=== PATIENT | male | born 1935 | race Caucasian/White ===

== ENCOUNTER 2017-09-29 07:39 | Day surgery (SDC) | payer OTHER, SELFPAY ==
[2017-09-29] MEDS: PROPARACAINE 0.5% OPHTH SOL 2 DROPS EYE-OP (07:55)
[2017-09-29] MEDS: CATARACT EYE COMPOUND (10 DROPS/SYRINGE) 3 DROPS EYE-OP (08:00)
[2017-09-29 08:02] VITALS: BP 153/82; PULSE 60; RESP 16; TEMP 36.1; O2SAT 100; BMI 24.3
--- NOTE | 2017-09-29 08:45 | P.OP_ITS ---
Operative Date/Time/Diagnoses Pre-op diagnosis: Cataract Left eye Post-op diagnosis: same Procedure & Clinicians Surgeon: Sanchez Fry Anesthesia Type: MAC +/- and Sedation Operative Notes Procedure in detail: Patient brought to the operating suite. Tetracaine drops placed in the left eye. Patient was prepped and draped in sterile manner. Wire lid speculum was placed in the eye. Betadine drops were placed on the eye. This was irrigated. Lidocaine jelly was placed on the eye. A paracentesis port was created with a side-port blade. 0.1 mL 1% preservative free lidocaine was injected into the anterior chamber. The anterior chamber was deepened with viscoelastic. 2.6 mm keratome was used to create a temporal clear corneal incision. Cystotome and Utrata forceps were used to create continuous tear capsulorrhexis. Balanced salt solution was used to hydro dissect the nucleus. The phacoemulsification handpiece was inserted and the nucleus was removed using the stop and chop technique. The irrigation aspiration handpiece was inserted and the remaining cortex was removed. Anterior chamber was deepened with viscoelastic. An Ramos ZCB00 intraocular lens with a power of 21.0 was injected into the capsular bag. Irrigation aspiration handpiece was inserted and the remaining viscoelastic was removed. Incision was hydrated with balanced salt solution and found to be leak free with pressure with Weck- Kelley sponges. 0.1 mL Vigamox injected anterior chamber. 0.3 mL Kenalog 10 mg was injected subconjunctivally. Lid speculum was removed. The patient left the operating room in excellent condition. Complications: none Condition: stable Disposition: same day surgery
--- NOTE | 2017-09-29 08:45 | P.OP.PRE_ITS ---
Pre-operative Note Interval Note Changes: No
--- NOTE | 2017-09-29 08:45 | PM.PREOP ---
Pre-operative Note Interval Note Changes: No
[2017-09-29] MEDS: LIDOCAINE JELLY 2% 5 ML 1 APPLIC TOP (08:57)
[2017-09-29] MEDS: MOXIFLOXACIN OPHTH DROPS 3 ML BOTTLE 2 DROPS INJ (08:57)
[2017-09-29] MEDS: CHONDROIDTIN/SOD HYALURONATE 1.05 ML SYRINGE INTRAOCULA (08:57)
[2017-09-29] MEDS: TRIAMCINOLONE 50 MG/5 ML VIAL INJ (08:58)
[2017-09-29] MEDS: PHENYLEPHRINE/LIDOCAINE 3ML VIAL (OR) EYE-OP (08:58)
[2017-09-29] MEDS: TETRACAINE 0.5% OPHTH DROPS 15 ML 2 DROPS EYE-LEFT (08:58)
[2017-09-29] MEDS: BALANCED SALT IRRIG SOLN NO.2 500 ML, EPINEPHrine 1 MG IRR (08:58)
[2017-09-29 09:10] VITALS: BP 132/77; PULSE 53; RESP 16; TEMP 36.7; O2SAT 98
== END 2017-09-29 09:15 | disposition home or self-care (01) ==
LOC: OR 07:40
PROVIDERS: Family Provider Internal Medicine; PCP Internal Medicine; Visit Provider Ophthalmology
DX: H25.12 Age-related nuclear cataract, left eye (principal); I10 Essential (primary) hypertension
CPT/HCPCS: J0171; J2250; J3010; J3301

== ENCOUNTER 2017-10-13 06:45 | Day surgery (SDC) | payer OTHER, SELFPAY ==
[2017-10-13] MEDS: PROPARACAINE 0.5% OPHTH SOL 2 DROPS EYE-OP (07:20)
[2017-10-13] MEDS: CATARACT EYE COMPOUND (10 DROPS/SYRINGE) 3 DROPS EYE-OP (07:20)
[2017-10-13 07:27] VITALS: BMI 24.3
[2017-10-13 07:46] VITALS: BP 147/77; PULSE 53; RESP 15; TEMP 36.4
--- NOTE | 2017-10-13 08:43 | P.OP.PRE_ITS ---
Pre-operative Note Interval Note Changes: No
--- NOTE | 2017-10-13 08:43 | P.OP_ITS ---
Operative Date/Time/Diagnoses Pre-op diagnosis: Cataract Right eye Post-op diagnosis: same Procedure & Clinicians Procedure: Cataract Surgery Same procedure as scheduled: Yes Surgeon: Sanchez Fry Anesthesia Type: MAC +/- and Sedation Operative Notes Procedure in detail: Patient brought to the operating suite. Tetracaine drops placed in the right eye. Patient was prepped and draped in sterile manner. Wire lid speculum was placed in the eye. Betadine drops were placed on the eye. This was irrigated. Lidocaine jelly was placed on the eye. A paracentesis port was created with a side-port blade. 0.1 mL 1% preservative free lidocaine was injected into the anterior chamber. The anterior chamber was deepened with viscoelastic. 2.6 mm keratome was used to create a temporal clear corneal incision. Cystotome and Utrata forceps were used to create continuous tear capsulorrhexis. Balanced salt solution was used to hydro dissect the nucleus. The phacoemulsification handpiece was inserted and the nucleus was removed using the stop and chop technique. The irrigation aspiration handpiece was inserted and the remaining cortex was removed. Anterior chamber was deepened with viscoelastic. An Ramos ZCB00 intraocular lens with a power of 21.0 was injected into the capsular bag. Irrigation aspiration handpiece was inserted and the remaining viscoelastic was removed. Incision was hydrated with balanced salt solution and found to be leak free with pressure with Weck- Kelley sponges. 0.1 mL Vigamox injected anterior chamber. 0.3 mL Kenalog 10 mg was injected subconjunctivally. Lid speculum was removed. The patient left the operating room in excellent condition. Complications: none Condition: stable Disposition: same day surgery
--- NOTE | 2017-10-13 08:43 | PM.PREOP ---
Pre-operative Note Interval Note Changes: No
[2017-10-13] MEDS: CHONDROIDTIN/SOD HYALURONATE 1.05 ML SYRINGE INTRAOCULA (08:53)
[2017-10-13] MEDS: LIDOCAINE JELLY 2% 5 ML 1 APPLIC TOP (08:53)
[2017-10-13] MEDS: TRIAMCINOLONE 50 MG/5 ML VIAL INJ (08:54)
[2017-10-13] MEDS: BALANCED SALT IRRIG SOLN NO.2 500 ML, EPINEPHrine 1 MG IRR (08:54)
[2017-10-13] MEDS: PHENYLEPHRINE/LIDOCAINE 3ML VIAL (OR) EYE-OP (08:54)
[2017-10-13] MEDS: MOXIFLOXACIN OPHTH DROPS 3 ML BOTTLE 2 DROPS INJ (08:54)
[2017-10-13] MEDS: TETRACAINE 0.5% OPHTH DROPS 15 ML 2 DROPS EYE-RIGHT (08:54)
[2017-10-13 09:17] VITALS: BP 121/68; PULSE 53; RESP 10; TEMP 36.6
== END 2017-10-13 09:25 | disposition home or self-care (01) ==
PROVIDERS: Family Provider Internal Medicine; PCP Internal Medicine; Visit Provider Ophthalmology
DX: H25.11 Age-related nuclear cataract, right eye (principal); I10 Essential (primary) hypertension
CPT/HCPCS: J0171; J2250; J3010; J3301

== ENCOUNTER → 2017-12-30 12:32 | Outpatient (CLI) | payer OTHER, SELFPAY ==
[2017-12-30 13:31] LABS: Alanine Aminotransferase 35 IU/L (21-72); Albumin 4.6 g/dL (3.5-5.0); Albumin Globulin Ratio 1.3 (1.0-2.8); Alkaline Phosphatase 75 U/L (38-126); Aspartate Aminotransferase 38 IU/L (17-59); BUN Creatinine Ratio 24.5 (6-22); Bilirubin Total 0.5 mg/dL (0.2-1.3); Blood Urea Nitrogen 27 mg/dL (9-20); Calcium 9.4 mg/dL (8.4-10.2); Carbon Dioxide 31 mmol/L (22-32); Chloride 93 mmol/L (98-107); Estimated Glomerular Filt Rate > 60.0 mL/min (>60); Globulin 3.5 g/dL (1.7-4.1); Glucose 92 mg/dL (80-110); HEMOLYSIS < 15 (0-50); Potassium 4.5 mmol/L (3.4-5.1); Sodium 137 mmol/L (137-145); Total Protein 8.1 g/dL (6.3-8.2)
== END ==
PROVIDERS: PCP Internal Medicine; Visit Provider Internal Medicine
DX: I10 Essential (primary) hypertension (principal)
CPT/HCPCS: 36415; 80053

== ENCOUNTER 2018-06-01 08:16 | Day surgery (SDC) | payer OTHER, SELFPAY ==
[2018-06-01] MEDS: SODIUM CHLORIDE 0.9% 1,000 ML 200 ML IV (09:03)
[2018-06-01 09:14] VITALS: BP 134/83; PULSE 63; RESP 15; TEMP 36.4; O2SAT 98; BMI 24.6
--- NOTE | 2018-06-01 10:13 | P.HP_ITS ---
History of Present Illness Date Patient Seen: 06/01/18 Time Patient Seen: 10:00 Chief complaint: Colonoscopy Narrative: Patient is a and here for screening colonoscopy. Last exam was 5 years ago. He had a polyp removed at that time. 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 Mother No problems noted. Sister No problems noted. Social History household members: spouse Smoking Status: Never smoker Family & Social History Family History Child Age: 48 Diabetes mellitus Father No problems noted. Mother No problems noted. Sister No problems noted. Social History: household members spouse Tobacco & Substance use: Smoking Status Never smoker Meds Home Medications Medication Instructions Recorded Confirmed Type CA PANTOTHENATE/FOLIC ACID/VIT 1 tab PO Q DAY #0 11/08/10 06/01/18 History (MULTIVITAMIN) ascorbic acid (vitamin C) 500 mg PO QDAY #0 11/17/11 06/01/18 History chlorthalidone 100 mg PO QDAY 09/29/17 06/01/18 History tamsulosin 0.4 mg capsule 0.4 mg PO DAILY #90 cap 01/26/18 06/01/18 Rx losartan 100 mg tablet 100 mg PO Q DAY #90 tab 05/24/18 06/01/18 Rx fluticasone propionate 2 spray INTRANASAL HS PRN 06/01/18 06/01/18 History multivitamin 1 tab PO DAILY 06/01/18 06/01/18 History sildenafil [Viagra] 0 mg PO QDAYP PRN 06/01/18 06/01/18 History Allergies Allergy/AdvReac Type Severity Reaction Status Date / Time erythromycin base Allergy Severe sob Verified 06/01/18 09:06 [ERYTHROMYCIN BASE] hydrochlorothiazide Allergy Mild RASH Verified 06/01/18 09:06 [HYDROCHLOROTHIAZIDE] lisinopril [LISINOPRIL] Allergy Mild RASH Verified 06/01/18 09:06 Penicillins [PENICILLINS] Allergy Mild DIARRHEA Verified 06/01/18 09:06 Review of Systems Review of Systems All systems reviewed & are unremarkable except as noted in HPI and below Exam Vital Signs (past 8 hours): - 06/01/18 09:14 Temperature 97.6 F Pulse Rate 63 Respiratory Rate 15 Blood Pressure 134/83 Pulse Oximetry 98 Oxygen Delivery Method Room Air Narrative Exam Narrative: Co Operative no apparent distress. Thin. Lungs are clear to auscultation. Heart regular rate and rhythm without murmur gallop. Abdomen is scaphoid soft nontender without mass. Assessment & Plan Assessment & Plan narrative: Here for screening colonoscopy. I have discussed the procedure and the rationale with the patient including risks of bleeding, perforation which would necessitate a major operation, failure to find remove a ll lesions and the potential to tattoo. They appeared to understand and wished to proceed.
--- NOTE | 2018-06-01 10:14 | PM.PREOP ---
Pre-operative Note Interval Note History & Physical reviewed/Exam performed by Physician: Yes Changes to H&P: No ASA Class (for procedural sedation): II
[2018-06-01] MEDS: fentaNYL 250 MCG/5 ML INJ IV (10:24)
[2018-06-01] MEDS: MIDAZOLAM 5 MG/5 ML VIAL IV (10:25)
--- NOTE | 2018-06-01 10:44 | P.OP.ENDO_ITS ---
Operative Date/Time/Diagnoses Date of procedure: 06/01/18 Time of procedure: 10:40 Post-op diagnosis: same (Sigmoid diverticulosis. Lesion of the anus that will require biopsy in the office) Procedure & Clinicians Study performed: Colonoscopy Same procedure as scheduled: Yes Indications: History of polyps. Screening exam. Surgeon: Jonnathan Massey Procedure Notes SCOAP/Timeout: Performed Procedure in detail: The patient was placed in the left lateral decubitus position and underwent IV sedation directed by the surgeon consisting of fentanyl and Versed. Digital exam was remarkable for a hard firm area. 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 The scope was inserted and advanced through the rectum into the sigmoid, descending, transverse, and ascending colon. The patient was noted to have some diverticulosis in the sigmoid colon.. The cecum was reached identified by the ileocecal valve and the appendiceal opening. The scope was gradually brought out. No Polyps were found. The scope ultimately was retroflexed in the rectum. The appearance was normal internally.. The scope was removed and the patient tolerated the procedure well. prep was very good. Scope withdrawal time: 10 minutes Sedation minutes: 23 Findings: diverticulosis (Sigmoid) and other findings (Hardened area of the anus.) Specimen(s): none sent Complications: none Recommendations: Colonscopy in 5 years (If in good health.) and Other recomme ndation (Anoscopy be to biopsy an anal lesion under local anesthetic. To be done in the office) Plan for aftercare: Follow-up in the office for an anoscopy and biopsy Follow up: weeks (2-4) Disposition: PACU
[2018-06-01 10:45] VITALS: BP 107/66; PULSE 58; RESP 20; TEMP 37; O2SAT 100
--- NOTE | 2018-06-01 10:54 | SUR.PHASEII ---
Sitting up, talking with family, drinking juice. Denies pain, nausea, light-headedness.
== END 2018-06-01 11:11 | disposition home or self-care (01) ==
PROVIDERS: PCP Internal Medicine; Visit Provider Specialist
PROC: 0DJD8ZZ Inspection of Lower Intestinal Tract, Via Natural or Artificial Opening Endoscopic (ICD-10-PCS; CPT 45378; principal; 2018-06-01 09:45)
DX: Z86.010 Personal history of colon polyps (principal); I10 Essential (primary) hypertension; K57.30 Diverticulosis of large intestine without perforation or abscess without bleeding; K62.89 Other specified diseases of anus and rectum
CPT/HCPCS: G0105; 99152; J2250; J3010

== ENCOUNTER → 2018-07-06 15:49 | Outpatient (CLI) | payer OTHER, SELFPAY ==
--- NOTE | 2018-07-06 15:50 | DI.US.S_ITS ---
PROCEDURE: US PERIPH VENOUS LOW EXTREM LT INDICATIONS: LEFT LEG REDNESS, POSSIBLE DEEP VEIN THROMBOSIS TECHNIQUE: Real-time imaging, as well as color and pulse Doppler interrogation, were performed of the lower extremity deep veins from the inguinal ligament to the popliteal fossa. COMPARISON: None. FINDINGS: The common femoral, femoral and popliteal veins are normally compressible, and free of intraluminal thrombus. Color and pulse Doppler demonstrate normal phasic intraluminal flow. There is normal augmentation response to distal compression maneuver. Multiple lymph nodes are visualized within the left inguinal region which have a normal fatty hilum. IMPRESSION: No deep vein thrombosis of the left lower extremity. Dictated by: Leanne Hi M.D. on 07/06/2018 at 17:04 Approved by: Leanne Hi M.D. on 07/06/2018 at 17:05
== END ==
PROVIDERS: PCP Internal Medicine; Visit Provider Hospitalist
DX: I82.409 Acute embolism and thrombosis of unspecified deep veins of unspecified lower extremity (principal)
CPT/HCPCS: 93971

== ENCOUNTER → 2018-08-10 12:24 | Outpatient (CLI) | payer OTHER, SELFPAY ==
[2018-08-14 17:55] LABS: Almond Allergy Class 0; Almond Allergy IgE < 0.10 kU/L (< 0.10); Cashew nut Allergy Class 0; Cashew nut Allergy IgE < 0.10 kU/L (< 0.10); Codfish Allergy Class 0; Codfish Allergy IgE < 0.10 kU/L (< 0.10); Cow Milk Allergy Class 0; Cow Milk Allergy IgE < 0.10 kU/L (< 0.10); Egg Whites IgE < 0.10 kU/L (< 0.10); Hazelnut Allergy Class 0; Hazelnut Allergy IgE < 0.10 kU/L (< 0.10); Peanut Allergy Class 0; Peanut Allergy IgE < 0.10 kU/L (< 0.10); Salmon Allergy Class 0; Salmon Allergy IgE < 0.10 kU/L (< 0.10); Scallop Allergy Class 0; Scallop Allergy IgE < 0.10 kU/L (< 0.10); Sesame seed Allergy Class 0; Sesame seed Allergy IgE < 0.10 kU/L (< 0.10); Shrimp Allergy Class 0; Shrimp Allergy IgE < 0.10 kU/L (< 0.10); Soybean Allergy Class 0; Soybean Allergy IgE < 0.10 kU/L (< 0.10); Tuna Allergy Class 0; Tuna Allergy IgE < 0.10 kU/L (< 0.10); Walnut Allergy Class 0; Walnut Allery IgE < 0.10 kU/L (< 0.10); Wheat Allergy Class 0; Wheat Allergy IgE < 0.10 kU/L (< 0.10)
== END ==
PROVIDERS: PCP Internal Medicine; Visit Provider Physician Assistant
DX: L30.9 Dermatitis, unspecified (principal)
CPT/HCPCS: 36415; 82785; 86003

== ENCOUNTER → 2019-07-11 11:04 | Outpatient (CLI) | payer OTHER, SELFPAY ==
[2019-07-13 04:31] LABS: COVID19 Sendout Not Detected (Not Detected)
== END ==
PROVIDERS: PCP Internal Medicine; Visit Provider Registered Nurse
DX: R06.02 Shortness of breath (principal)
CPT/HCPCS: 87635

== ENCOUNTER → 2019-07-29 09:08 | Outpatient (CLI) | payer OTHER, SELFPAY ==
[2019-07-29 10:13] LABS: Add Manual Diff / Slide Review NO; Basophils Absolute Auto 0 /uL (0-100); Basophils Percent Auto 0.3 % (0-2); Eosinophils Absolute Auto 300 /uL (0-450); Eosinophils Percent Auto 6.7 % (2-4); Hematocrit 41.4 % (41-53); Hemoglobin 13.9 g/dL (13.5-17.5); Lymphocytes Absolute Auto 1700 /uL (1100-4500); Lymphocytes Percent Auto 34.4 % (25-40); Mean Corpuscular HGB Conc 33.7 % (30-36); Mean Corpuscular Hemoglobin 29.3 PG (26-34); Mean Corpuscular Volume 87.1 fL (80-100); Monocytes Absolute Auto 600 /uL (0-900); Monocytes Percent Auto 12.7 % (3-14); Neutrophils Absolute Auto 2300 /uL (1500-7000); Neutrophils Percent Auto 45.9 % (50-75); Platelet Count 150 X10^3/uL (150-400); Red Blood Cell Count 4.75 X10^6/uL (4.5-5.9); Red Cell Distribution Width 14.8 % (11.6-14.8)
[2019-07-29 10:50] LABS: Erythrocyte Sedimentation Rate 7 MM/HR (0-15)
[2019-07-29 11:06] LABS: Alanine Aminotransferase 23 IU/L (<50); Albumin 4.1 g/dL (3.5-5.0); Alkaline Phosphatase 89 U/L (38-126); Aspartate Aminotransferase 34 IU/L (17-59); BUN Creatinine Ratio 22.4 (6-22); Bilirubin Total 0.9 mg/dL (0.2-1.3); Blood Urea Nitrogen 24 mg/dL (9-20); Calcium 9.4 mg/dL (8.4-10.2); Carbon Dioxide 27 mmol/L (22-32); Chloride 103 mmol/L (98-107); Estimated Glomerular Filt Rate > 60.0 mL/min (>60); Globulin 4.2 g/dL (1.7-4.1); Glucose 91 mg/dL (80-110); HEMOLYSIS < 15 (0-50); Potassium 4.4 mmol/L (3.4-5.1); Sodium 138 mmol/L (137-145); Total Protein 8.3 g/dL (6.3-8.2)
[2019-07-29 11:08] LABS: C-Reactive Protein Quant < 0.5 mg/dL (<1.0)
[2019-07-29 11:28] LABS: TSH w/ Reflex to FT4 3.93 uIU/mL (0.47-4.68)
== END ==
PROVIDERS: PCP Internal Medicine; Referring Provider Internal Medicine; Visit Provider Internal Medicine
DX: I10 Essential (primary) hypertension (principal); R06.02 Shortness of breath; R50.9 Fever, unspecified; R53.83 Other fatigue
CPT/HCPCS: 36415; 80053; 84443; 85025; 85651; 86140

== ENCOUNTER → 2020-05-01 11:12 | Outpatient (CLI) | payer OTHER, SELFPAY ==
[2020-05-01 12:58] LABS: Add Manual Diff / Slide Review NO; Basophils Absolute Auto 100 /uL (0-100); Basophils Percent Auto 0.9 % (0-2); Eosinophils Absolute Auto 300 /uL (0-450); Eosinophils Percent Auto 4.4 % (2-4); Hematocrit 46.8 % (41-53); Hemoglobin 15.6 g/dL (13.5-17.5); Lymphocytes Absolute Auto 1800 /uL (1100-4500); Lymphocytes Percent Auto 23.5 % (25-40); Mean Corpuscular HGB Conc 33.4 % (30-36); Mean Corpuscular Hemoglobin 29.9 PG (26-34); Mean Corpuscular Volume 89.6 fL (80-100); Monocytes Absolute Auto 500 /uL (0-900); Monocytes Percent Auto 7.2 % (3-14); Neutrophils Absolute Auto 4800 /uL (1500-7000); Platelet Count 141 X10^3/uL (150-400); Red Blood Cell Count 5.22 X10^6/uL (4.5-5.9); Red Cell Distribution Width 14.1 % (11.6-14.8); White Blood Cell Count 7.6 X10^3/uL (4.5-11.0)
[2020-05-01 13:14] LABS: Alanine Aminotransferase 21 IU/L (<50); Albumin 4.5 g/dL (3.5-5.0); Albumin Globulin Ratio 1.1 (1.0-2.8); Alkaline Phosphatase 91 U/L (38-126); Aspartate Aminotransferase 33 IU/L (17-59); BUN Creatinine Ratio 21.9 (6-22); Bilirubin Total 0.6 mg/dL (0.2-1.3); Blood Urea Nitrogen 21 mg/dL (9-20); Calcium 9.4 mg/dL (8.4-10.2); Carbon Dioxide 26 mmol/L (22-32); Chloride 100 mmol/L (98-107); Estimated Glomerular Filt Rate > 60.0 mL/min (>60); Globulin 4.2 g/dL (1.7-4.1); Glucose 95 mg/dL (80-110); HEMOLYSIS < 15 (0-50); Potassium 4.3 mmol/L (3.4-5.1); Sodium 134 mmol/L (137-145); Total Protein 8.7 g/dL (6.3-8.2)
== END ==
PROVIDERS: PCP Internal Medicine; Referring Provider Internal Medicine; Visit Provider Internal Medicine
DX: I10 Essential (primary) hypertension (principal)
CPT/HCPCS: 36415; 80053; 84443; 85025

== ENCOUNTER → 2020-05-10 09:28 | Outpatient (CLI) | payer OTHER, SELFPAY ==
--- NOTE | 2020-06-09 11:11 | PM.CARDMON.1 ---
[employer] Report Referral & Results Date Patient Seen: 05/10/20 Requesting provider: Anthony Aranda Indication: Dizziness Duration of monitoring (days): 14 Diary information: There were 5 patient triggered events and 4 patient diary entries These patient events were associated with (within 45 seconds) sinus rhythm and PACs Data: Minimum heart rate identified was 39 beats per minute at 06:27 on 05/15/2020 Maximum sinus heart rate was 125 beats per minute at 09:39 on 05/21/2020 Maximum overall heart rate was 203 beats per minute at 10:15 on 05/21/2020 during a 4 beat run of SVT Less than 1% of identified beats were ventricular or supraventricular ectopic in origin, which would classify them as rare. There 191 runs of SVT the fastest being the 4 beat run as above the longest lasting 18.6 seconds at a rate of 125 beats per minute Impression: Probably normal 14 day quality assurance monitor final showing rare PACs PVCs and rare, brief runs of SVT
== END ==
PROVIDERS: PCP Internal Medicine; Referring Provider Internal Medicine; Visit Provider Internal Medicine
DX: R42 Dizziness and giddiness (principal); I49.9 Cardiac arrhythmia, unspecified
CPT/HCPCS: 93246; 93248

== ENCOUNTER → 2020-07-04 11:19 | Outpatient (CLI) | payer OTHER, SELFPAY ==
[2020-07-04 12:36] LABS: COVID19 -Nasal RAPID Negative (Negative)
== END ==
PROVIDERS: PCP Internal Medicine; Visit Provider Student in an Organized Health Care Education/Training Program
DX: Z01.812 Encounter for preprocedural laboratory examination (principal); Z20.822 Contact with and (suspected) exposure to COVID-19
CPT/HCPCS: 87635

== ENCOUNTER → 2020-07-05 13:08 | Outpatient (CLI) | payer OTHER, SELFPAY ==
--- NOTE | 2020-07-05 14:29 | PM.TREADMILL ---
Cardiac Stress Test Report Referral & Results Date Patient Seen: 07/05/20 Requesting provider: Anthony Aranda Indication: Dizziness, arrhythmia Rest ECG: Unremarkable Procedure Note: Today following both written and verbal informed consent, the patient was exercised according to a standard Alvin protocol. The patient exercised for a total of 5 minutes 33 seconds achieving a maximum heart rate of 138. Patient's maximum systolic blood pressure was 220. This was an estimated 7.0 MET's. Patient did become quite dyspneic with this activity which was ultimately what caused him to stop. This seemed out of proportion to his level of exertion by far. No ST-T segment changes. Normal heart rate and blood pressure response although slightly hypertensive at his peak blood pressure Occasional PAC and PVC including runs of supraventricular bigeminy in recovery Function aerobic impairment rates about 0 on the active scale, difficult to be sure given he is well above the usual age threshold Impression: Normal treadmill, no evidence of ischemia, no significant dysrhythmias noted. Noted dyspnea as above Please note: Actual ECG tracings can be found in the PACS system.
== END ==
PROVIDERS: PCP Internal Medicine; Referring Provider Internal Medicine; Visit Provider Internal Medicine
DX: I49.9 Cardiac arrhythmia, unspecified (principal); R42 Dizziness and giddiness
CPT/HCPCS: 93016; 93017; 93018

== ENCOUNTER → 2020-07-19 11:09 | Outpatient (CLI) | payer OTHER, SELFPAY ==
[2020-07-19 12:13] LABS: COVID19 -Nasal RAPID Negative (Negative)
== END ==
PROVIDERS: PCP Internal Medicine; Referring Provider Internal Medicine; Visit Provider Internal Medicine
DX: Z20.822 Contact with and (suspected) exposure to COVID-19 (principal)
CPT/HCPCS: 87635; C9803

== ENCOUNTER → 2020-07-19 11:10 | Outpatient (CLI) | payer OTHER, SELFPAY ==
--- NOTE | 2020-07-25 11:07 | PM.PFT.1 ---
Pulmonary Function Test Referral & Results Date Patient Seen: 07/19/20 Requesting provider: Anthony Aranda Indication: Shortness of breath Results: The spirometry demonstrates an FVC of 3.83 L which is 103% of predicted. The FEV1 was measured at 2.81 L which is 109% of predicted. The FEV1/FVC ratio was 74 which is 103% of predicted. Following the administration of bronchodilator there was no significant change to above normal numbers. Lung volumes show an SVC of 4.02 L which is 96% of predicted. The diffusing capacity was measured at 26.20 which is 84% of predicted. The maximum voluntary ventilation was minimally reduced Interpretation: This study demonstrates normal spirometry and diffusing capacity There may be a minimal reduction in maximum voluntary ventilation which would support the diagnosis of very mild neuromuscular disease Clinical correlation suggested
== END ==
PROVIDERS: PCP Internal Medicine; Referring Provider Internal Medicine; Visit Provider Internal Medicine
DX: R06.02 Shortness of breath (principal); Z20.822 Contact with and (suspected) exposure to COVID-19
CPT/HCPCS: 87635; 94060; 94726; 94729; C9803

== ENCOUNTER → 2021-10-24 10:22 | Outpatient (CLI) | payer OTHER, SELFPAY ==
[2021-10-24 12:14] LABS: Add Manual Diff / Slide Review NO; Basophils Absolute Auto 100 /uL (0-100); Eosinophils Absolute Auto 300 /uL (0-450); Eosinophils Percent Auto 3.2 % (2-4); Hemoglobin 14.9 g/dL (13.5-17.5); Lymphocytes Absolute Auto 1300 /uL (1100-4500); Lymphocytes Percent Auto 14.2 % (25-40); Mean Corpuscular HGB Conc 33.8 % (30-36); Mean Corpuscular Volume 88.9 fL (80-100); Monocytes Absolute Auto 700 /uL (0-900); Monocytes Percent Auto 7.3 % (3-14); Neutrophils Absolute Auto 6600 /uL (1500-7000); Neutrophils Percent Auto 74.3 % (50-75); Platelet Count 151 X10^3/uL (150-400); Red Blood Cell Count 4.95 X10^6/uL (4.5-5.9); Red Cell Distribution Width 14.5 % (11.6-14.8); White Blood Cell Count 8.9 X10^3/uL (4.5-11.0)
[2021-10-24 12:52] LABS: Alanine Aminotransferase 18 IU/L (<50); Albumin 4.2 g/dL (3.5-5.0); Albumin Globulin Ratio 1.1 (1.0-2.8); Alkaline Phosphatase 89 U/L (38-126); Aspartate Aminotransferase 29 IU/L (17-59); BUN Creatinine Ratio 21.4 (6-22); Bilirubin Total 0.7 mg/dL (0.2-1.3); Blood Urea Nitrogen 21 mg/dL (9-20); Calcium 8.7 mg/dL (8.4-10.2); Carbon Dioxide 25 mmol/L (22-32); Chloride 101 mmol/L (98-107); Estimated Glomerular Filt Rate > 60 mL/min (>60); Globulin 3.8 g/dL (1.7-4.1); Glucose 85 mg/dL (80-110); HEMOLYSIS 16 (0-50); Potassium 4.5 mmol/L (3.4-5.1); Sodium 136 mmol/L (137-145)
[2021-10-24 13:59] LABS: TSH w/ Reflex to FT4 4.32 uIU/mL (0.47-4.68)
== END ==
PROVIDERS: PCP Internal Medicine; Referring Provider Internal Medicine; Visit Provider Internal Medicine
DX: D12.6 Benign neoplasm of colon, unspecified (principal); I10 Essential (primary) hypertension; N13.8 Other obstructive and reflux uropathy; N40.1 Benign prostatic hyperplasia with lower urinary tract symptoms; R42 Dizziness and giddiness
CPT/HCPCS: 36415; 80053; 84443; 85025

== ENCOUNTER → 2022-12-15 07:58 | Outpatient (CLI) | payer OTHER, SELFPAY ==
[2022-12-15 09:17] LABS: Alanine Aminotransferase 22 IU/L (<50); Albumin 4.2 g/dL (3.5-5.0); Alkaline Phosphatase 92 U/L (38-126); Aspartate Aminotransferase 35 IU/L (17-59); Bilirubin Total 0.9 mg/dL (0.2-1.3); Blood Urea Nitrogen 21 mg/dL (9-20); Calcium 9.5 mg/dL (8.4-10.2); Carbon Dioxide 28 mmol/L (22-32); Chloride 104 mmol/L (98-107); Cholesterol 183 mg/dL (140-199); Estimated Glomerular Filt Rate > 60 mL/min (>60); Globulin 4.1 g/dL (1.7-4.1); Glucose 96 mg/dL (80-110); HDL Cholesterol 41 mg/dL (40-60); HEMOLYSIS < 15 (0-50); LDL Cholesterol Calculated 118 mg/dL (<100); Potassium 4.9 mmol/L (3.4-5.1); Sodium 139 mmol/L (137-145); Total Protein 8.3 g/dL (6.3-8.2); Triglycerides 122 mg/dL (35-150)
[2022-12-15 09:46] LABS: TSH w/ Reflex to FT4 3.55 uIU/mL (0.47-4.68)
== END ==
PROVIDERS: PCP Internal Medicine; Referring Provider Internal Medicine; Visit Provider Internal Medicine
DX: I10 Essential (primary) hypertension (principal); E03.9 Hypothyroidism, unspecified
CPT/HCPCS: 36415; 80053; 80061; 84443

== ENCOUNTER → 2023-05-28 14:19 | Outpatient (CLI) | payer OTHER, SELFPAY ==
--- NOTE | 2023-05-28 14:21 | DI.RAD.S_ITS ---
PROCEDURE: XR KNEE RT 3V INDICATIONS: knee pain TECHNIQUE: 3 views of the knee were acquired. COMPARISON: [facility], MR, KNEE WITHOUT CONTRAST, 05/05/2014, 14:20. FINDINGS: Bones: No fractures or dislocations. No suspicious bony lesions. Mild tricompartmental knee joint degeneration. Osteopenia. Soft tissues: Trace joint effusion. No suspicious soft tissue calcifications. IMPRESSION: 1 No acute bony abnormality or significant effusion. 2. Mild degenerative joint disease. 3. Osteopenia. Dictated by: Kari Vargas M.D. on 05/29/2023 at 8:24 Approved by: Kari Vargas M.D. on 05/29/2023 at 8:27
== END ==
PROVIDERS: PCP Internal Medicine; Referring Provider Internal Medicine; Visit Provider Internal Medicine
DX: M17.11 Unilateral primary osteoarthritis, right knee (principal); M85.861 Other specified disorders of bone density and structure, right lower leg; M25.561 Pain in right knee
CPT/HCPCS: 73562

== ENCOUNTER → 2023-10-22 09:29 | Outpatient (CLI) | payer OTHER, SELFPAY ==
--- NOTE | 2023-10-22 09:32 | DI.RAD.S_ITS ---
PROCEDURE: XR LUMBAR SPINE 2-3V INDICATIONS: pain with R leg sciatica since 10/09 after straining TECHNIQUE: 3 views of the lumbar spine were acquired. COMPARISON: None. FINDINGS: Bones: 5 [id number] vertebrae are present. Mild scoliosis. Moderate degenerative changes. L4-L5 and L5-S1 facet joint hypertrophy. Neural foraminal narrowing. Disc space height loss. No vertebral body compression fractures. No suspicious bony lesions. Soft tissues: Overlying bowel gas pattern is normal. No suspicious soft tissue calcifications. IMPRESSION: No compression fracture. Mild scoliosis. 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 Dictated by: David Prescott M.D. on 10/22/2023 at 22:33 Approved by: David Prescott M.D. on 10/22/2023 at 22:36
== END ==
PROVIDERS: PCP Internal Medicine; Referring Provider Physician Assistant; Visit Provider Physician Assistant
DX: M54.40 Lumbago with sciatica, unspecified side (principal); M47.816 Spondylosis without myelopathy or radiculopathy, lumbar region; M47.817 Spondylosis without myelopathy or radiculopathy, lumbosacral region; M41.9 Scoliosis, unspecified; Z91.81 History of falling
CPT/HCPCS: 72100

== ENCOUNTER → 2023-12-22 10:05 | Outpatient (CLI) | payer OTHER, SELFPAY ==
[2023-12-22 11:09] LABS: Add Manual Diff / Slide Review NO; Basophils Absolute Auto 100 /uL (0-100); Basophils Percent Auto 1.3 % (0-2); Eosinophils Absolute Auto 300 /uL (0-450); Eosinophils Percent Auto 5.9 % (2-4); Hematocrit 46.1 % (41-53); Hemoglobin 15.2 g/dL (13.5-17.5); Lymphocytes Absolute Auto 1200 /uL (1100-4500); Lymphocytes Percent Auto 22.1 % (25-40); Mean Corpuscular Hemoglobin 30.2 PG (26-34); Mean Corpuscular Volume 91.6 fL (80-100); Monocytes Absolute Auto 500 /uL (0-900); Monocytes Percent Auto 9.8 % (3-14); Neutrophils Absolute Auto 3200 /uL (1500-7000); Neutrophils Percent Auto 60.9 % (50-75); Platelet Count 136 X10^3/uL (150-400); Red Blood Cell Count 5.04 X10^6/uL (4.5-5.9); Red Cell Distribution Width 14.9 % (11.6-14.8); White Blood Cell Count 5.3 X10^3/uL (4.5-11.0)
[2023-12-22 11:29] LABS: Alanine Aminotransferase 24 IU/L (<50); Albumin 4.4 g/dL (3.5-5.0); Albumin Globulin Ratio 1.2 (1.0-2.8); Alkaline Phosphatase 99 U/L (38-126); Aspartate Aminotransferase 36 IU/L (17-59); BUN Creatinine Ratio 26.7 (6-22); Bilirubin Total 0.8 mg/dL (0.2-1.3); Blood Urea Nitrogen 28 mg/dL (9-20); Calcium 9.4 mg/dL (8.4-10.2); Carbon Dioxide 27 mmol/L (22-32); Chloride 106 mmol/L (98-107); Estimated Glomerular Filt Rate > 60 mL/min (>60); Globulin 3.6 g/dL (1.7-4.1); Glucose 86 mg/dL (80-110); HEMOLYSIS < 15 (0-50); Potassium 4.9 mmol/L (3.4-5.1); Sodium 139 mmol/L (137-145)
== END ==
PROVIDERS: Family Provider Internal Medicine; PCP Internal Medicine; Referring Provider Internal Medicine; Visit Provider Internal Medicine
DX: I10 Essential (primary) hypertension (principal); N40.1 Benign prostatic hyperplasia with lower urinary tract symptoms; N13.8 Other obstructive and reflux uropathy; D64.9 Anemia, unspecified
CPT/HCPCS: 36415; 80053; 84443; 85025

== ENCOUNTER 2024-01-27 07:30 | Outpatient (RCR) | payer OTHER, SELFPAY ==
--- NOTE | 2024-01-11 15:30 | PT.OIE ---
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) Cataract (lens) fragments in eye following cataract surgery, bilateral Chicken pox (~1944) Essential hypertension (11/08/10) Hemorrhoid (~2012) Hypertension Measles (~194) Vision disorder Visit Care Team Role Provider Type Anthony Aranda MD Family Provider Physician Primary Care Provider Specialty: Internal Medicine Address: [address] [place] [address], [address], [place], [address] Email: [email or web address] [email or web address] Vizcarra PA-C Attending Provider Advanced Reimbursement Analyst Referring Provider Specialty: Medical Wound Care Address: [address] [place] [address], [id number] Email: [email or web address] Physical Therapy Initial Evaluation PT-OP-A Visit Information Start: 01/08/24 11:06 Freq: Status: Active Protocol: Document 01/11/24 08:16 NM (Rec: 01/11/24 09:01 NM [id number]) Out-Patient Physical Therapy Visit Information Visit Information Visit Type Initial Evaluation Visit Note 15 approved visits Visit Start Time 08:18 Visit Stop Time 09:00 Visit Number 03/16 Evaluation Information Evaluation Date 01/11/24 Precautions Precautions Fall risk, blood pressure PT-OP-B Current Condition Start: 01/08/24 11:06 Freq: Status: Active Protocol: Document 01/11/24 08:16 NM (Rec: 01/11/24 09:01 NM [id number]) Current Condition History of Current Condition Current Complaints balance, weakness History of Current Condition Pt presents with low back pain . He has had low back pain since 10/10/23. He was working on a sink (underneath), states that he using back muscles while fixing the pipes. He reports that the next day, his back hurt and got worse up to 8/10 pain. He reports that the pain was so sharp that he would fall, which is abnormal for him. He dropped directly to the ground, unable to catch himself. He reports that has not happened 3 weeks ago. Now a moderate pain, states that has been that way for about a month. He reports that he can walk but still reports that every once in a while, on hills, he feels a grabs usually on the L side but occasionally on the R. He reports that he had back pain 40 years ago when picking a heavy piece of metal. He denies no catching or locking in back. He gets sharp a pain with walking on unlevel surfaces (hills). He denies changes to bowel or bladder currently but states that he was having difficulty having a bowel movement in last 2 weeks; no changes to diet, states that he drinks coffee and milk but not water; denies sensation changes in thighs. He reports that he has occasional occasional shooting pain down his RLE, stays above the knee posterior thigh . He denies numbness or tingling in his BLE. He does not use a AD currently, was using crutch for balance when his back was bothering him extensively. 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 Current Functional Impairments (Reported) Functional Limitations- Mobility/Gait 1 mi ambulation to walk dog ea day- reports occasional sharp pain reports balance is not quite as good since injury; reports that he was able to stand on 1 leg and put his pants on but has not been able to do since September pt hiking 5-6 mi before injury couple times a week, reports that he uses a cane recently ( used lofstrand crutch) Functional Limitations- Other sleeps on L side- not waking due to pain PT-OP-C Subjective Start: 01/08/24 11:06 Freq: Status: Active Protocol: Document 01/11/24 08:16 NM (Rec: 01/11/24 09:01 NM [id number]) OP-PT Subjective Patient Comments Patient Comments Pt consents to participate in evaluation Patient Questionnaires Oswestry Low Back Index Oswestry Score 12/100 OP-PT Pain Assessment Location lumbar spine Pain Location Details midline, L>R Intensity 2 Scale Used Numeric (0 - 10) Description Aching,Dull,Sharp Description- Other worse: 10/09 Frequency Intermittent Radiating Location none Variations/Patterns am- painful but improves w/ motion- does not worsen throughout day Pain Aggravating Factors Standing,Walking,Stair Climbing,Bending Other Pain Aggravating Factors standing 30min-1 hr Pain Alleviating Factors Sitting PT-OP-D Balance Start: 01/08/24 11:06 Freq: Status: Active Protocol: Document 01/11/24 08:16 NM (Rec: 01/11/24 09:01 NM [id number]) Balance Tests Rodriguez Balance Test Rodriguez Balance Test Score 42/56 PT-OP-E Functional Tests Start: 01/08/24 11:06 Freq: Status: Active Protocol: Document 01/11/24 08:16 NM (Rec: 01/11/24 09:01 NM [id number]) Functional Tests Five Times Sit to Stand Test Score 17.3 sec (19 chair) Comments repro pain at spine L side; initially >1 attempt to stand Timed Up and Go (TUG) Score 11.5 sec Comments no AD PT-OP-F Manual Assessment Start: 01/08/24 11:06 Freq: Status: Active Protocol: Document 01/11/24 08:16 NM (Rec: 01/11/24 09:01 NM [id number]) Manual Assessments Soft Tissue Assessment Soft Tissue Mobility Assessment Tightness of paraspinals erma on R side, B hamstrings, and hip flexors Joint Mobility Assessment Joint Mobility Assessment Hypomobility of lumbar spine with small scoliosis PT-OP-G Mobility & Gait Start: 01/08/24 11:06 Freq: Status: Active Protocol: Document 01/11/24 08:16 NM (Rec: 01/11/24 16:36 NM [id number]) OP Gait Assessment Gait Gait Assistance Required: Standby Assistance Distance (Feet) 150 Gait Deviations General Gait Pattern Antalgic,Flexed Trunk Factors Limiting Gait Function Factors Limiting Gait Function Decreased Activity Tolerance, Decreased Strength,Pain,Poor Balance Comments Gait Comments Demos increased trunk sway with ambulation PT-OP-H Neuro Start: 01/08/24 11:06 Freq: Status: Active Protocol: Document 01/11/24 08:16 NM (Rec: 01/11/24 09:01 NM [id number]) Sensation Evaluation Comments Summary Comments BLE intact to light touch sensation equally PT-OP-J Posture/Palpation/Skin Start: 01/08/24 11:06 Freq: Status: Active Protocol: Document 01/11/24 08:16 NM (Rec: 01/11/24 16:36 NM [id number]) Posture Evaluation Position Standing Head/C-Spine Posture Forward Head L-Spine Posture Increased Lordosis Shoulder Posture (L) Rounded,(R) Rounded Pelvis Posture Anteriorly Tilted Hip Posture (L) Externally Rotated,(R) Externally Rotated Palpation Assessment Location lumbar spine Palpation Details Increased restrictions of paraspinals No tenderness along midline to palpation until lower lumbar spine and B PSIS/SIJ PT-OP-K Range of Motion Start: 01/08/24 11:06 Freq: Status: Active Protocol: Document 01/11/24 08:16 NM (Rec: 01/11/24 09:01 NM [id number]) Lumbar Spine Range of Motion Lumbar Spine Active Percentage Flexion 50 Extension 25 Rotation Left 50 Rotation Right 50 Lateral Flexion Left 50 Lateral Flexion Right 50 Comments pain with L LF, ext PT-OP-L Special Tests Start: 01/08/24 11:06 Freq: Status: Active Protocol: Document 01/11/24 08:16 NM (Rec: 01/11/24 09:01 NM [id number]) Special Tests Lumbar Spine Special Tests Trimble/quadrant Test Results - PT-OP-M Strength Start: 01/08/24 11:06 Freq: Status: Active Protocol: Document 01/11/24 08:16 NM (Rec: 01/11/24 09:01 NM [id number]) Trunk Strength Trunk Manual Muscle Testing Flexion 3+ Fair+ Extension 3+ Fair+ Rotation Left 3+ Fair+ Rotation Right 3+ Fair+ Lateral Flexion Left 3+ Fair+ Lateral Flexion Right 3+ Fair+ Comments No pain Hip Strength Hip Manual Muscle Testing Right Flexion (L2) 4- Good- Extension (S1) 4- Good- Abduction 4- Good- Adduction 4- Good- External Rotation 4- Good- Internal Rotation 4- Good- Left Flexion (L2) 4- Good- Extension (S1) 4- Good- Abduction 4- Good- Adduction 4- Good- External Rotation 4- Good- Internal Rotation 4- Good- Knee Strength Knee Manual Muscle Testing Right Flexion (S2) 4- Good- Extension (L3) 4- Good- Left Flexion (S2) 4- Good- Extension (L3) 4- Good- Ankle/Foot Strength Ankle and Foot Manual Muscle Testing Right Dorsiflexion (L4) 4- Good- Plantarflexion (S1) 4- Good- Left Dorsiflexion (L4) 4- Good- Plantarflexion (S1) 4- Good- PT-OP-Q Treatments Start: 01/08/24 11:06 Freq: Status: Active Protocol: Document 01/11/24 08:16 NM (Rec: 01/11/24 16:36 NM [id number]) Therapeutic Exercises Supine Exercises hamstring/nerve mobilization Supine Exercise Name HEP Side bilateral Equipment Used gait belt assist behind BLE Reps/Minutes 10x5 hold ea Comments B HS tightness; no increase in sympotonms bridge Supine Exercise Name HEP Side bilateral Reps/Minutes 10x2 Comments cued small shoulder press into bed instead of head; painfree PT-OP-T Assessment and Plan Start: 01/08/24 11:06 Freq: Status: Active Protocol: Document 01/11/24 08:16 NM (Rec: 01/11/24 09:01 NM [id number]) Physical Therapy Assessment Rehab Potential Rehabilitation Potential Good Evaluation Complexity Number of Personal Factors/Comorbidities 3 or More Number of Body Systems Impaired 3 Clinical Presentation at Evaluation Stable Impairments Impairments Activity Tolerance,Balance, Functional Activities, Functional Mobility,Gait,Pain, Posture,ROM,Sensation,Soft Tissue Mobility,Strength, Transfers Other Concerns Age Related Concerns PMH: back pain, high blood pressure, falls. Pt reports that he gets up several times at night to got to bathroom Barriers to Rehabilitation Pt will be gone through most of January due to travel, so he is wanting to be done with PT before January. He also has a copay ea session and limited number of visits. Goals Three Impairment 5x STS score 17.3 w/ inc back pain indicating difficulty w/ transfers Short Term Goal (STG) Pt will be educated on body mechanics and ergonomics to improve ability to perform transfers during at least 10 reps of STS from standard chair STG Duration 4 weeks Director Of Elementary Education Goal (LTG) Pt will be able to perform 5x STS from standard height chair without increase in back or leg pain in at least 15 seconds or less (age-related norm) to indicate improved balance and BLE strength for transfers LTG Duration 10 weeks Two Impairment Rodriguez balance 42/56 indicating increased fall risk Director Of Elementary Education Goal (LTG) Pt will improve Rodriguez balance score to >45/56 (cut off score ) in order to demonstrate improvements in balance with static activities and decreased fall risk LTG Duration 10 weeks One Impairment not performing HEP Director Of Elementary Education Goal (LTG) Pt will report compliance with HEP at least 3x/wk in order to maximize progression with PT and transition to maintenance program LTG Duration 10 weeks Assessment Summary Assessment Pt presents with low back pain beginning in October 2023 after working under a sink, L sided > R sided. He does have a hx of low back pain many decades ago. Pt also has intermittent radicular symptoms into RLE. He has impairments in ROM, strength, gait, transfers, sleeping, and pain management. Pt has had several falls following injury due to pain but denies any falls previously. His Rodriguez balance score is 42/56 indicating increased fall risk . Pain is reproduced with trunk AROM and resisted hip strength testing. Pain also reproduced with transfers, especially into L side, which are worse than age-related norms. PT educated pt on exam findings and plan of care. Pt has limited number of visits due to insurance and due to travel plans for holidays. He would benefit from skilled PT for progressive strengthening and flexibility in order to improve symptom management and ability to perform ADLs/IADLs . Physical Therapy Plan Frequency and Duration Frequency of Treatment 2x/Week Duration of treatment (weeks) 10 Plan of Care Start Date 01/11/24 Plan of Care End Date 03/25/24 Therapeutic Interventions Therapeutic Interventions Balance Training,Gait Training ,Home Exercise Program,Joint Mobilizations,Manual Therapy, Neuromuscular Re-education, Orthotic/Prosthetic Management ,Patient/Caregiver Education, Self-Care/Home Management, Sensory Integration,Soft Tissue Mobilization,Taping, Therapeutic Activities, Therapeutic Exercises Modalities Cold Pack/Ice Massage,Electric Stimulation,Hot Packs Next Visit Focus/Plan Next Note Type Treatment Note Next Visit Plan Review HEP. Initiate hip and low back mobility, hip stretching. Initiate strengthening of hip and back in sitting and standing. Core bracing in supine > sit > stand and body mechanics/ ergononics training.
--- NOTE | 2024-01-13 15:51 | PT.OTN ---
Current Diagnoses Lumbago with sciatica, unspecified side (01/13/24) Other lack of coordination (01/13/24) Weakness (01/13/24) Physical Therapy Treatment Note PT-OP-A Visit Information Start: 01/08/24 11:06 Freq: Status: Active Protocol: Document 01/13/24 12:59 NM (Rec: 01/13/24 13:46 NM [id number]) Out-Patient Physical Therapy Visit Information Visit Information Visit Type Treatment Note Visit Note 15 approved visits Visit Start Time 13:01 Visit Stop Time 13:43 Visit Number 04/16 Evaluation Information Evaluation Date 01/11/24 Precautions Precautions Fall risk, blood pressure PT-OP-B Current Condition Start: 01/08/24 11:06 Freq: Status: Active Protocol: Document 01/11/24 08:16 NM (Rec: 01/11/24 09:01 NM [id number]) Current Condition History of Current Condition Current Complaints balance, weakness History of Current Condition Pt presents with low back pain . He has had low back pain since 10/10/23. He was working on a sink (underneath), states that he using back muscles while fixing the pipes. He reports that the next day, his back hurt and got worse up to 8/10 pain. He reports that the pain was so sharp that he would fall, which is abnormal for him. He dropped directly to the ground, unable to catch himself. He reports that has not happened 3 weeks ago. Now a moderate pain, states that has been that way for about a month. He reports that he can walk but still reports that every once in a while, on hills, he feels a grabs usually on the L side but occasionally on the R. He reports that he had back pain 40 years ago when picking a heavy piece of metal. He denies no catching or locking in back. He gets sharp a pain with walking on unlevel surfaces (hills). He denies changes to bowel or bladder currently but states that he was having difficulty having a bowel movement in last 2 weeks; no changes to diet, states that he drinks coffee and milk but not water; denies sensation changes in thighs. He reports that he has occasional occasional shooting pain down his RLE, stays above the knee posterior thigh . He denies numbness or tingling in his BLE. He does not use a AD currently, was using crutch for balance when his back was bothering him extensively. 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 Current Functional Impairments (Reported) Functional Limitations- Mobility/Gait 1 mi ambulation to walk dog ea day- reports occasional sharp pain reports balance is not quite as good since injury; reports that he was able to stand on 1 leg and put his pants on but has not been able to do since September pt hiking 5-6 mi before injury couple times a week, reports that he uses a cane recently ( used lofstrand crutch) Functional Limitations- Other sleeps on L side- not waking due to pain PT-OP-C Subjective Start: 01/08/24 11:06 Freq: Status: Active Protocol: Document 01/13/24 12:59 NM (Rec: 01/13/24 13:46 NM [id number]) OP-PT Subjective Patient Comments Patient Comments Pt reports no change after evaluation on Thursday, states pain. He attempted exercises at home, reports do not cause pain. Pt does not radicular symptoms into RLE right now PT-OP-D Balance Start: 01/08/24 11:06 Freq: Status: Active Protocol: Document 01/11/24 08:16 NM (Rec: 01/11/24 09:01 NM [id number]) Balance Tests Rodriguez Balance Test Rodriguez Balance Test Score 42/56 PT-OP-E Functional Tests Start: 01/08/24 11:06 Freq: Status: Active Protocol: Document 01/11/24 08:16 NM (Rec: 01/11/24 09:01 NM [id number]) Functional Tests Five Times Sit to Stand Test Score 17.3 sec (19 chair) Comments repro pain at spine L side; initially >1 attempt to stand Timed Up and Go (TUG) Score 11.5 sec Comments no AD PT-OP-F Manual Assessment Start: 01/08/24 11:06 Freq: Status: Active Protocol: Document 01/11/24 08:16 NM (Rec: 01/11/24 09:01 NM [id number]) Manual Assessments Soft Tissue Assessment Soft Tissue Mobility Assessment Tightness of paraspinals erma on R side, B hamstrings, and hip flexors Joint Mobility Assessment Joint Mobility Assessment Hypomobility of lumbar spine with small scoliosis PT-OP-G Mobility & Gait Start: 01/08/24 11:06 Freq: Status: Active Protocol: Document 01/11/24 08:16 NM (Rec: 01/11/24 16:36 NM [id number]) OP Gait Assessment Gait Gait Assistance Required: Standby Assistance Distance (Feet) 150 Gait Deviations General Gait Pattern Antalgic,Flexed Trunk Factors Limiting Gait Function Factors Limiting Gait Function Decreased Activity Tolerance, Decreased Strength,Pain,Poor Balance Comments Gait Comments Demos increased trunk sway with ambulation PT-OP-H Neuro Start: 01/08/24 11:06 Freq: Status: Active Protocol: Document 01/11/24 08:16 NM (Rec: 01/11/24 09:01 NM [id number]) Sensation Evaluation Comments Summary Comments BLE intact to light touch sensation equally PT-OP-J Posture/Palpation/Skin Start: 01/08/24 11:06 Freq: Status: Active Protocol: Document 01/11/24 08:16 NM (Rec: 01/11/24 16:36 NM [id number]) Posture Evaluation Position Standing Head/C-Spine Posture Forward Head L-Spine Posture Increased Lordosis Shoulder Posture (L) Rounded,(R) Rounded Pelvis Posture Anteriorly Tilted Hip Posture (L) Externally Rotated,(R) Externally Rotated Palpation Assessment Location lumbar spine Palpation Details Increased restrictions of paraspinals No tenderness along midline to palpation until lower lumbar spine and B PSIS/SIJ PT-OP-K Range of Motion Start: 01/08/24 11:06 Freq: Status: Active Protocol: Document 01/11/24 08:16 NM (Rec: 01/11/24 09:01 NM [id number]) Lumbar Spine Range of Motion Lumbar Spine Active Percentage Flexion 50 Extension 25 Rotation Left 50 Rotation Right 50 Lateral Flexion Left 50 Lateral Flexion Right 50 Comments pain with L LF, ext PT-OP-L Special Tests Start: 01/08/24 11:06 Freq: Status: Active Protocol: Document 01/11/24 08:16 NM (Rec: 01/11/24 09:01 NM [id number]) Special Tests Lumbar Spine Special Tests Trimble/quadrant Test Results - PT-OP-M Strength Start: 01/08/24 11:06 Freq: Status: Active Protocol: Document 01/11/24 08:16 NM (Rec: 01/11/24 09:01 NM [id number]) Trunk Strength Trunk Manual Muscle Testing Flexion 3+ Fair+ Extension 3+ Fair+ Rotation Left 3+ Fair+ Rotation Right 3+ Fair+ Lateral Flexion Left 3+ Fair+ Lateral Flexion Right 3+ Fair+ Comments No pain Hip Strength Hip Manual Muscle Testing Right Flexion (L2) 4- Good- Extension (S1) 4- Good- Abduction 4- Good- Adduction 4- Good- External Rotation 4- Good- Internal Rotation 4- Good- Left Flexion (L2) 4- Good- Extension (S1) 4- Good- Abduction 4- Good- Adduction 4- Good- External Rotation 4- Good- Internal Rotation 4- Good- Knee Strength Knee Manual Muscle Testing Right Flexion (S2) 4- Good- Extension (L3) 4- Good- Left Flexion (S2) 4- Good- Extension (L3) 4- Good- Ankle/Foot Strength Ankle and Foot Manual Muscle Testing Right Dorsiflexion (L4) 4- Good- Plantarflexion (S1) 4- Good- Left Dorsiflexion (L4) 4- Good- Plantarflexion (S1) 4- Good- PT-OP-Q Treatments Start: 01/08/24 11:06 Freq: Status: Active Protocol: Document 01/13/24 12:59 NM (Rec: 01/13/24 13:46 NM [id number]) Therapeutic Exercises Supine Exercises piriformis stretch Supine Exercise Name cross body stretch Side bilateral Reps/Minutes 60 ea TrA activation Supine Exercise Name 1. activation, 2. april (HEP) Side bilateral Reps/Minutes 1 . 60 w/ verbal/tactile cues ; 2. 10 ea Comments improved activation w/ reps; cued no back arch, brace as if punched figure 4 stretch Side bilateral Reps/Minutes 60 ea Comments reports discomfort in L hip riki stretch Supine Exercise Name HEP Side bilateral Reps/Minutes 60 Comments L tighter hamstring/nerve mobilization Supine Exercise Name 1. ankle pumps, 2. HEP review- knee flex and ext w/ ankle pumps Side bilateral Equipment Used gait belt assist behind BLE Reps/Minutes 1. 60, 2. 60 Comments no increase in symptoms bridge Supine Exercise Name HEP review Side bilateral Equipment Used with ppt (cued flatten back on table before lift) Reps/Minutes 10 AROM, 15 w/ level 3 band at thighs Comments pain free Sidelying Exercises reverse clams Side bilateral Equipment Used pillow btwn legs Reps/Minutes 15 ea clams Side bilateral Equipment Used hand on hip for self-tactile cue Reps/Minutes 10 ea Comments reports mild LBP w/ clam, state 1.5/10 Sitting Exercises hip abduction Sitting Exercise Name 1. isometric, 2. clam (HEP) Side bilateral Reps/Minutes 1. 60, 2. 20 Manual Therapy Treatment Consent Patient gave verbal consent for manual Yes treatment Soft Tissue Mobilization lumbar spine Body Location L sided paraspinals, QL, glutes, piriformis Mobilization Type Rolling,Strumming,Sustained Pressure Intensity/Depth Moderate Body Position Sidelying Comments R sidelying , supported w/ pillow between legs. Gentle rolling, sustained pressure, and lateral flexion stretching with hands at ribs/pelvis. Monitored for pain. Reports good feedback with manual treatment. Mild tenderness just below posterior iliac crest. Palpable muscle nodule between glutes and paraspinals on L side. PT-OP-T Assessment and Plan Start: 01/08/24 11:06 Freq: Status: Active Protocol: Document 01/13/24 12:59 NM (Rec: 01/13/24 13:46 NM [id number]) Physical Therapy Assessment Goals Three Impairment 5x STS score 17.3 w/ inc back pain indicating difficulty w/ transfers Short Term Goal (STG) Pt will be educated on body mechanics and ergonomics to improve ability to perform transfers during at least 10 reps of STS from standard chair STG Duration 4 weeks Machine Room Engineer Goal (LTG) Pt will be able to perform 5x STS from standard height chair without increase in back or leg pain in at least 15 seconds or less (age-related norm) to indicate improved balance and BLE strength for transfers LTG Duration 10 weeks Two Impairment Rodriguez balance 42/56 indicating increased fall risk Machine Room Engineer Goal (LTG) Pt will improve Rodriguez balance score to >45/56 (cut off score ) in order to demonstrate improvements in balance with static activities and decreased fall risk LTG Duration 10 weeks One Impairment not performing HEP Machine Room Engineer Goal (LTG) Pt will report compliance with HEP at least 3x/wk in order to maximize progression with PT and transition to maintenance program LTG Duration 10 weeks Assessment Summary Assessment Pt tolerated session well and reports no back pain at end of session upon transfer from table, with ambulation out of clinic reports 1/10 discomfort but denies pain. Good response to hip stretching and gentle strengthening. Glute/ piriformis stretches modified for comfort at low back. Initiated core bracing in supine to begin trunk stabilization. Pt challenged initially with coordination but able to progress to marching with minimal cueing. Trialed sidelying hip rotator strengthening; hip ER challenging and reports slight pulling on back. Best feedback to glute medius strengthening and bridges. Moderate cueing for correct execution. Pt would benefit from skilled PT for progressive trunk and hip flexibility and strengthening in order to improve symptom management and ADL tolerance. Physical Therapy Plan Frequency and Duration Frequency of Treatment 2x/Week Duration of treatment (weeks) 10 Plan of Care Start Date 01/11/24 Plan of Care End Date 03/25/24 Therapeutic Interventions Therapeutic Interventions Balance Training,Gait Training ,Home Exercise Program,Joint Mobilizations,Manual Therapy, Neuromuscular Re-education, Orthotic/Prosthetic Management ,Patient/Caregiver Education, Self-Care/Home Management, Sensory Integration,Soft Tissue Mobilization,Taping, Therapeutic Activities, Therapeutic Exercises Modalities Cold Pack/Ice Massage,Electric Stimulation,Hot Packs Next Visit Focus/Plan Next Note Type Treatment Note Next Visit Plan cont w/ hip and low back mobility (trial LTR or modified cat camel), review and modify hip stretching as needed. Initiate strengthening of hip and back in sitting and standing: STS, leg press, pallof press, seated march, dying bug, carries, modified bird dog, hip 3 way. Core bracing in supine > sit > stand and body mechanics/ ergononics training.
--- NOTE | 2024-01-18 15:31 | PT.OTN ---
Current Diagnoses Lumbago with sciatica, unspecified side (01/18/24) Other lack of coordination (01/18/24) Weakness (01/18/24) Physical Therapy Treatment Note PT-OP-A Visit Information Start: 01/08/24 11:06 Freq: Status: Active Protocol: Document 01/18/24 12:54 AB (Rec: 01/18/24 15:31 AB [id number]) Out-Patient Physical Therapy Visit Information Visit Information Visit Type Treatment Note Visit Note 15 approved visits Access Code [email or web address] Visit Start Time 13:47 Visit Stop Time 14:30 Visit Number 3/15 Number of REPORTER Visits 1 Evaluation Information Evaluation Date 01/11/24 Precautions Precautions Fall risk, blood pressure PT-OP-B Current Condition Start: 01/08/24 11:06 Freq: Status: Active Protocol: Document 01/11/24 08:16 NM (Rec: 01/11/24 09:01 NM [id number]) Current Condition History of Current Condition Current Complaints balance, weakness History of Current Condition Pt presents with low back pain . He has had low back pain since 10/10/23. He was working on a sink (underneath), states that he using back muscles while fixing the pipes. He reports that the next day, his back hurt and got worse up to 10/09 pain. He reports that the pain was so sharp that he would fall, which is abnormal for him. He dropped directly to the ground, unable to catch himself. He reports that has not happened 3 weeks ago. Now a moderate pain, states that has been that way for about a month. He reports that he can walk but still reports that every once in a while, on hills, he feels a grabs usually on the L side but occasionally on the R. He reports that he had back pain 40 years ago when picking a heavy piece of metal. He denies no catching or locking in back. He gets sharp a pain with walking on unlevel surfaces (hills). He denies changes to bowel or bladder currently but states that he was having difficulty having a bowel movement in last 2 weeks; no changes to diet, states that he drinks coffee and milk but not water; denies sensation changes in thighs. He reports that he has occasional occasional shooting pain down his RLE, stays above the knee posterior thigh . He denies numbness or tingling in his BLE. He does not use a AD currently, was using crutch for balance when his back was bothering him extensively. 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 Current Functional Impairments (Reported) Functional Limitations- Mobility/Gait 1 mi ambulation to walk dog ea day- reports occasional sharp pain reports balance is not quite as good since injury; reports that he was able to stand on 1 leg and put his pants on but has not been able to do since September pt hiking 5-6 mi before injury couple times a week, reports that he uses a cane recently ( used lofstrand crutch) Functional Limitations- Other sleeps on L side- not waking due to pain PT-OP-C Subjective Start: 01/08/24 11:06 Freq: Status: Active Protocol: Document 01/18/24 12:54 AB (Rec: 01/18/24 15:31 AB [id number]) OP-PT Subjective Patient Comments Patient Comments Patient reports he is a little better right now, but in changes. Patient reports a lot of standing and sometimes walking increases his pain. BP seated left UE 139/78 HR 59 start of session. PT-OP-D Balance Start: 01/08/24 11:06 Freq: Status: Active Protocol: Document 01/11/24 08:16 NM (Rec: 01/11/24 09:01 NM [id number]) Balance Tests Rodriguez Balance Test Rodriguez Balance Test Score 42/56 PT-OP-E Functional Tests Start: 01/08/24 11:06 Freq: Status: Active Protocol: Document 01/11/24 08:16 NM (Rec: 01/11/24 09:01 NM [id number]) Functional Tests Five Times Sit to Stand Test Score 17.3 sec (19 chair) Comments repro pain at spine L side; initially >1 attempt to stand Timed Up and Go (TUG) Score 11.5 sec Comments no AD PT-OP-F Manual Assessment Start: 01/08/24 11:06 Freq: Status: Active Protocol: Document 01/11/24 08:16 NM (Rec: 01/11/24 09:01 NM [id number]) Manual Assessments Soft Tissue Assessment Soft Tissue Mobility Assessment Tightness of paraspinals erma on R side, B hamstrings, and hip flexors Joint Mobility Assessment Joint Mobility Assessment Hypomobility of lumbar spine with small scoliosis PT-OP-G Mobility & Gait Start: 01/08/24 11:06 Freq: Status: Active Protocol: Document 01/11/24 08:16 NM (Rec: 01/11/24 16:36 NM [id number]) OP Gait Assessment Gait Gait Assistance Required: Standby Assistance Distance (Feet) 150 Gait Deviations General Gait Pattern Antalgic,Flexed Trunk Factors Limiting Gait Function Factors Limiting Gait Function Decreased Activity Tolerance, Decreased Strength,Pain,Poor Balance Comments Gait Comments Demos increased trunk sway with ambulation PT-OP-H Neuro Start: 01/08/24 11:06 Freq: Status: Active Protocol: Document 01/11/24 08:16 NM (Rec: 01/11/24 09:01 NM [id number]) Sensation Evaluation Comments Summary Comments BLE intact to light touch sensation equally PT-OP-J Posture/Palpation/Skin Start: 01/08/24 11:06 Freq: Status: Active Protocol: Document 01/11/24 08:16 NM (Rec: 01/11/24 16:36 NM [id number]) Posture Evaluation Position Standing Head/C-Spine Posture Forward Head L-Spine Posture Increased Lordosis Shoulder Posture (L) Rounded,(R) Rounded Pelvis Posture Anteriorly Tilted Hip Posture (L) Externally Rotated,(R) Externally Rotated Palpation Assessment Location lumbar spine Palpation Details Increased restrictions of paraspinals No tenderness along midline to palpation until lower lumbar spine and B PSIS/SIJ PT-OP-K Range of Motion Start: 01/08/24 11:06 Freq: Status: Active Protocol: Document 01/11/24 08:16 NM (Rec: 01/11/24 09:01 NM [id number]) Lumbar Spine Range of Motion Lumbar Spine Active Percentage Flexion 50 Extension 25 Rotation Left 50 Rotation Right 50 Lateral Flexion Left 50 Lateral Flexion Right 50 Comments pain with L LF, ext PT-OP-L Special Tests Start: 01/08/24 11:06 Freq: Status: Active Protocol: Document 01/11/24 08:16 NM (Rec: 01/11/24 09:01 NM [id number]) Special Tests Lumbar Spine Special Tests Trimble/quadrant Test Results - PT-OP-M Strength Start: 01/08/24 11:06 Freq: Status: Active Protocol: Document 01/11/24 08:16 NM (Rec: 01/11/24 09:01 NM [id number]) Trunk Strength Trunk Manual Muscle Testing Flexion 3+ Fair+ Extension 3+ Fair+ Rotation Left 3+ Fair+ Rotation Right 3+ Fair+ Lateral Flexion Left 3+ Fair+ Lateral Flexion Right 3+ Fair+ Comments No pain Hip Strength Hip Manual Muscle Testing Right Flexion (L2) 4- Good- Extension (S1) 4- Good- Abduction 4- Good- Adduction 4- Good- External Rotation 4- Good- Internal Rotation 4- Good- Left Flexion (L2) 4- Good- Extension (S1) 4- Good- Abduction 4- Good- Adduction 4- Good- External Rotation 4- Good- Internal Rotation 4- Good- Knee Strength Knee Manual Muscle Testing Right Flexion (S2) 4- Good- Extension (L3) 4- Good- Left Flexion (S2) 4- Good- Extension (L3) 4- Good- Ankle/Foot Strength Ankle and Foot Manual Muscle Testing Right Dorsiflexion (L4) 4- Good- Plantarflexion (S1) 4- Good- Left Dorsiflexion (L4) 4- Good- Plantarflexion (S1) 4- Good- PT-OP-Q Treatments Start: 01/08/24 11:06 Freq: Status: Active Protocol: Document 01/18/24 12:54 AB (Rec: 01/18/24 15:31 AB [id number]) Therapeutic Exercises Supine Exercises lower trunk rotation Side bilateral Reps/Minutes one minute Comments monitored for pain piriformis stretch Supine Exercise Name cross body stretch Side bilateral Reps/Minutes 60 ea TrA activation Supine Exercise Name 1. with hip ext/hooklying HEP Side bilateral Reps/Minutes 1 . 60 w/ verbal/tactile cues ; 2. 10 ea Comments improved activation w/ reps; cued no back arch, brace as if punched riki stretch Supine Exercise Name HEP Side bilateral Reps/Minutes 60 Comments L tighter Sitting Exercises hip abduction Sitting Exercise Name 1. isometric, 2. clam (HEP) Side bilateral Resistance deering green band Reps/Minutes 1. 60, 2. 20 Therapeutic Activity Therapeutic Activity sit to stand Name HEP Reps/Minutes X6 and end of session X1 Log roll Name to the left and right HEP Reps/Minutes Verbal and visual cues Comments VC:When you get into bed, scoot back in sitting until the back of your legs touch the bed, lie on your side bringing your legs up onto the bed with your knees bent, rest for a moment then roll onto your back keeping your shoulder and hip aligned, when you get out of bed bend your knees, roll onto your side like a log keeping you hip and shoulder aligned, rest for a moment on your side, then push up into sitting immediately after your legs are pushed off the bed. PT-OP-T Assessment and Plan Start: 01/08/24 11:06 Freq: Status: Active Protocol: Document 01/18/24 12:54 AB (Rec: 01/18/24 15:31 AB [id number]) Physical Therapy Assessment Goals Three Impairment 5x STS score 17.3 w/ inc back pain indicating difficulty w/ transfers Short Term Goal (STG) Pt will be educated on body mechanics and ergonomics to improve ability to perform transfers during at least 10 reps of STS from standard chair STG Duration 4 weeks Director Group Sales Goal (LTG) Pt will be able to perform 5x STS from standard height chair without increase in back or leg pain in at least 15 seconds or less (age-related norm) to indicate improved balance and BLE strength for transfers LTG Duration 10 weeks Two Impairment Rodriguez balance 42/56 indicating increased fall risk Director Group Sales Goal (LTG) Pt will improve Rodriguez balance score to >45/56 (cut off score ) in order to demonstrate improvements in balance with static activities and decreased fall risk LTG Duration 10 weeks One Impairment not performing HEP Director Group Sales Goal (LTG) Pt will report compliance with HEP at least 3x/wk in order to maximize progression with PT and transition to maintenance program LTG Duration 10 weeks Assessment Summary Assessment Patient rates back pain.07/09 end of session. Increased/ repeated cues and repetitions for log roll required this session. Physical Therapy Plan Frequency and Duration Frequency of Treatment 2x/Week Duration of treatment (weeks) 10 Plan of Care Start Date 01/11/24 Plan of Care End Date 03/25/24 Next Visit Focus/Plan Next Note Type Treatment Note Next Visit Plan cont w/ hip and low back mobility (trial LTR or modified cat camel), review and modify hip stretching as needed. Initiate strengthening of hip and back in sitting and standing: STS, leg press, pallof press, seated march, dying bug, carries, modified bird dog, hip 3 way. Core bracing in supine > sit > stand and body mechanics/ ergononics training.
--- NOTE | 2024-01-20 16:32 | PT.OTN ---
Current Diagnoses Lumbago with sciatica, unspecified side (01/20/24) Other lack of coordination (01/20/24) Weakness (01/20/24) Physical Therapy Treatment Note PT-OP-A Visit Information Start: 01/08/24 11:06 Freq: Status: Active Protocol: Document 01/20/24 12:54 AB (Rec: 01/20/24 13:47 AB [id number]) Out-Patient Physical Therapy Visit Information Visit Information Visit Type Treatment Note Visit Note 15 approved visits Access Code DHPEWCAC Visit Start Time 13:02 Visit Stop Time 13:46 Visit Number 4 Number of ACID TREATER Visits 2 Evaluation Information Evaluation Date 01/11/24 Precautions Precautions Fall risk, blood pressure PT-OP-B Current Condition Start: 01/08/24 11:06 Freq: Status: Active Protocol: Document 01/11/24 08:16 NM (Rec: 01/11/24 09:01 NM [id number]) Current Condition History of Current Condition Current Complaints balance, weakness History of Current Condition Pt presents with low back pain . He has had low back pain since 10/10/23. He was working on a sink (underneath), states that he using back muscles while fixing the pipes. He reports that the next day, his back hurt and got worse up to 10/09 pain. He reports that the pain was so sharp that he would fall, which is abnormal for him. He dropped directly to the ground, unable to catch himself. He reports that has not happened 3 weeks ago. Now a moderate pain, states that has been that way for about a month. He reports that he can walk but still reports that every once in a while, on hills, he feels a grabs usually on the L side but occasionally on the R. He reports that he had back pain 40 years ago when picking a heavy piece of metal. He denies no catching or locking in back. He gets sharp a pain with walking on unlevel surfaces (hills). He denies changes to bowel or bladder currently but states that he was having difficulty having a bowel movement in last 2 weeks; no changes to diet, states that he drinks coffee and milk but not water; denies sensation changes in thighs. He reports that he has occasional occasional shooting pain down his RLE, stays above the knee posterior thigh . He denies numbness or tingling in his BLE. He does not use a AD currently, was using crutch for balance when his back was bothering him extensively. 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 Current Functional Impairments (Reported) Functional Limitations- Mobility/Gait 1 mi ambulation to walk dog ea day- reports occasional sharp pain reports balance is not quite as good since injury; reports that he was able to stand on 1 leg and put his pants on but has not been able to do since September pt hiking 5-6 mi before injury couple times a week, reports that he uses a cane recently ( used lofstrand crutch) Functional Limitations- Other sleeps on L side- not waking due to pain PT-OP-C Subjective Start: 01/08/24 11:06 Freq: Status: Active Protocol: Document 01/20/24 12:54 AB (Rec: 01/20/24 13:47 AB [id number]) OP-PT Subjective Patient Comments Patient Comments Patient reports he is the same rates pain 1 to .5/10 start of session back pain. Patient comments this is irritating as it is always there. PT-OP-D Balance Start: 01/08/24 11:06 Freq: Status: Active Protocol: Document 01/11/24 08:16 NM (Rec: 01/11/24 09:01 NM [id number]) Balance Tests Rodriguez Balance Test Rodriguez Balance Test Score 42/56 PT-OP-E Functional Tests Start: 01/08/24 11:06 Freq: Status: Active Protocol: Document 01/11/24 08:16 NM (Rec: 01/11/24 09:01 NM [id number]) Functional Tests Five Times Sit to Stand Test Score 17.3 sec (19 chair) Comments repro pain at spine L side; initially >1 attempt to stand Timed Up and Go (TUG) Score 11.5 sec Comments no AD PT-OP-F Manual Assessment Start: 01/08/24 11:06 Freq: Status: Active Protocol: Document 01/11/24 08:16 NM (Rec: 01/11/24 09:01 NM [id number]) Manual Assessments Soft Tissue Assessment Soft Tissue Mobility Assessment Tightness of paraspinals erma on R side, B hamstrings, and hip flexors Joint Mobility Assessment Joint Mobility Assessment Hypomobility of lumbar spine with small scoliosis PT-OP-G Mobility & Gait Start: 01/08/24 11:06 Freq: Status: Active Protocol: Document 01/11/24 08:16 NM (Rec: 01/11/24 16:36 NM [id number]) OP Gait Assessment Gait Gait Assistance Required: Standby Assistance Distance (Feet) 150 Gait Deviations General Gait Pattern Antalgic,Flexed Trunk Factors Limiting Gait Function Factors Limiting Gait Function Decreased Activity Tolerance, Decreased Strength,Pain,Poor Balance Comments Gait Comments Demos increased trunk sway with ambulation PT-OP-H Neuro Start: 01/08/24 11:06 Freq: Status: Active Protocol: Document 01/11/24 08:16 NM (Rec: 01/11/24 09:01 NM [id number]) Sensation Evaluation Comments Summary Comments BLE intact to light touch sensation equally PT-OP-J Posture/Palpation/Skin Start: 01/08/24 11:06 Freq: Status: Active Protocol: Document 01/11/24 08:16 NM (Rec: 01/11/24 16:36 NM [id number]) Posture Evaluation Position Standing Head/C-Spine Posture Forward Head L-Spine Posture Increased Lordosis Shoulder Posture (L) Rounded,(R) Rounded Pelvis Posture Anteriorly Tilted Hip Posture (L) Externally Rotated,(R) Externally Rotated Palpation Assessment Location lumbar spine Palpation Details Increased restrictions of paraspinals No tenderness along midline to palpation until lower lumbar spine and B PSIS/SIJ PT-OP-K Range of Motion Start: 01/08/24 11:06 Freq: Status: Active Protocol: Document 01/11/24 08:16 NM (Rec: 01/11/24 09:01 NM [id number]) Lumbar Spine Range of Motion Lumbar Spine Active Percentage Flexion 50 Extension 25 Rotation Left 50 Rotation Right 50 Lateral Flexion Left 50 Lateral Flexion Right 50 Comments pain with L LF, ext PT-OP-L Special Tests Start: 01/08/24 11:06 Freq: Status: Active Protocol: Document 01/11/24 08:16 NM (Rec: 01/11/24 09:01 NM [id number]) Special Tests Lumbar Spine Special Tests Trimble/quadrant Test Results - PT-OP-M Strength Start: 01/08/24 11:06 Freq: Status: Active Protocol: Document 01/11/24 08:16 NM (Rec: 01/11/24 09:01 NM [id number]) Trunk Strength Trunk Manual Muscle Testing Flexion 3+ Fair+ Extension 3+ Fair+ Rotation Left 3+ Fair+ Rotation Right 3+ Fair+ Lateral Flexion Left 3+ Fair+ Lateral Flexion Right 3+ Fair+ Comments No pain Hip Strength Hip Manual Muscle Testing Right Flexion (L2) 4- Good- Extension (S1) 4- Good- Abduction 4- Good- Adduction 4- Good- External Rotation 4- Good- Internal Rotation 4- Good- Left Flexion (L2) 4- Good- Extension (S1) 4- Good- Abduction 4- Good- Adduction 4- Good- External Rotation 4- Good- Internal Rotation 4- Good- Knee Strength Knee Manual Muscle Testing Right Flexion (S2) 4- Good- Extension (L3) 4- Good- Left Flexion (S2) 4- Good- Extension (L3) 4- Good- Ankle/Foot Strength Ankle and Foot Manual Muscle Testing Right Dorsiflexion (L4) 4- Good- Plantarflexion (S1) 4- Good- Left Dorsiflexion (L4) 4- Good- Plantarflexion (S1) 4- Good- PT-OP-Q Treatments Start: 01/08/24 11:06 Freq: Status: Active Protocol: Document 01/20/24 12:54 AB (Rec: 01/20/24 13:47 AB [id number]) Gym Equipment Shuttle Recovery single leg Details 37# Reps/Time each LE X 15 bilateral Details 75 # navy Reps/Time X15 Therapeutic Exercises Supine Exercises lower trunk rotation Side bilateral Reps/Minutes one minute Comments monitored for pain piriformis stretch Supine Exercise Name cross body stretch Side bilateral Reps/Minutes 60 ea figure 4 stretch Side bilateral Reps/Minutes 60 ea riki stretch Supine Exercise Name HEP Side bilateral Reps/Minutes 60 X2 with AROM knee flexion hamstring/nerve mobilization Supine Exercise Name 1. ankle pumps, 2. HEP review- knee flex and ext w/ ankle pumps Side bilateral Equipment Used gait belt assist behind BLE Reps/Minutes 1. 60, 2. 60 Comments no increase in symptoms Standing Exercises Bilateral heel raise Standing Exercise Name HEP Reps/Minutes X15 Comments Verbal cues to lower heels to floor slowly Pallof press Side bilateral Resistance level one then level 2 band Reps/Minutes X15 and X 21 Comments verbal and visual cues Therapeutic Activity Therapeutic Activity Log roll Name Verbal cues throughout session during transfers Reps/Minutes Verbal cues PT-OP-T Assessment and Plan Start: 01/08/24 11:06 Freq: Status: Active Protocol: Document 01/20/24 12:54 AB (Rec: 01/20/24 13:47 AB [id number]) Physical Therapy Assessment Goals Three Impairment 5x STS score 17.3 w/ inc back pain indicating difficulty w/ transfers Short Term Goal (STG) Pt will be educated on body mechanics and ergonomics to improve ability to perform transfers during at least 10 reps of STS from standard chair STG Duration 4 weeks Tobacco Packing Machine Operator Goal (LTG) Pt will be able to perform 5x STS from standard height chair without increase in back or leg pain in at least 15 seconds or less (age-related norm) to indicate improved balance and BLE strength for transfers LTG Duration 10 weeks Two Impairment Rodriguez balance 42/56 indicating increased fall risk Tobacco Packing Machine Operator Goal (LTG) Pt will improve Rodriguez balance score to >45/56 (cut off score ) in order to demonstrate improvements in balance with static activities and decreased fall risk LTG Duration 10 weeks One Impairment not performing HEP Intermediate Goal (LTG) Pt will report compliance with HEP at least 3x/wk in order to maximize progression with PT and transition to maintenance program LTG Duration 10 weeks Assessment Summary Assessment Patient rates back pain 0/10 end of session. Patient continues to require increased verbal cues for log roll ie intiates with sit up and reverse sit up. Physical Therapy Plan Frequency and Duration Frequency of Treatment 2x/Week Duration of treatment (weeks) 10 Plan of Care Start Date 01/11/24 Plan of Care End Date 03/25/24 Next Visit Focus/Plan Next Note Type Treatment Note Next Visit Plan cont w/ hip and low back mobility (modified cat camel), review and modify hip stretching as needed. Initiate strengthening of hip and back in sitting and standing: STS, leg press, pallof press to HEp, seated april, dying bug, carries, modified bird dog, hip 3 way. Core bracing in supine > sit > stand and body mechanics/ergononics training.
--- NOTE | 2024-01-27 08:16 | PT.OTN ---
Current Diagnoses Lumbago with sciatica, unspecified side (01/27/24) Other lack of coordination (01/27/24) Weakness (01/27/24) Physical Therapy Treatment Note PT-OP-A Visit Information Start: 01/08/24 11:06 Freq: Status: Active Protocol: Document 01/27/24 07:30 NM (Rec: 01/27/24 08:16 NM [id number]) Out-Patient Physical Therapy Visit Information Visit Information Visit Type Treatment Note Visit Note 15 approved visits Access Code DHPEWCAC Visit Start Time 07:32 Visit Stop Time 08:14 Visit Number 07/14 PT-OP-B Current Condition Start: 01/08/24 11:06 Freq: Status: Active Protocol: Document 01/11/24 08:16 NM (Rec: 01/11/24 09:01 NM [id number]) Current Condition History of Current Condition Current Complaints balance, weakness History of Current Condition Pt presents with low back pain . He has had low back pain since 10/10/23. He was working on a sink (underneath), states that he using back muscles while fixing the pipes. He reports that the next day, his back hurt and got worse up to 8/10 pain. He reports that the pain was so sharp that he would fall, which is abnormal for him. He dropped directly to the ground, unable to catch himself. He reports that has not happened 3 weeks ago. Now a moderate pain, states that has been that way for about a month. He reports that he can walk but still reports that every once in a while, on hills, he feels a grabs usually on the L side but occasionally on the R. He reports that he had back pain 40 years ago when picking a heavy piece of metal. He denies no catching or locking in back. He gets sharp a pain with walking on unlevel surfaces (hills). He denies changes to bowel or bladder currently but states that he was having difficulty having a bowel movement in last 2 weeks; no changes to diet, states that he drinks coffee and milk but not water; denies sensation changes in thighs. He reports that he has occasional occasional shooting pain down his RLE, stays above the knee posterior thigh . He denies numbness or tingling in his BLE. He does not use a AD currently, was using crutch for balance when his back was bothering him extensively. 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 Current Functional Impairments (Reported) Functional Limitations- Mobility/Gait 1 mi ambulation to walk dog ea day- reports occasional sharp pain reports balance is not quite as good since injury; reports that he was able to stand on 1 leg and put his pants on but has not been able to do since September pt hiking 5-6 mi before injury couple times a week, reports that he uses a cane recently ( used lofstrand crutch) Functional Limitations- Other sleeps on L side- not waking due to pain PT-OP-C Subjective Start: 01/08/24 11:06 Freq: Status: Active Protocol: Document 01/27/24 07:30 NM (Rec: 01/27/24 08:16 NM [id number]) OP-PT Subjective Patient Comments Patient Comments Pt reports the same with his back. Reports always worse in am, especially following sleeping. PT-OP-D Balance Start: 01/08/24 11:06 Freq: Status: Active Protocol: Document 01/11/24 08:16 NM (Rec: 01/11/24 09:01 NM [id number]) Balance Tests Rodriguez Balance Test Rodriguez Balance Test Score 42/56 PT-OP-E Functional Tests Start: 01/08/24 11:06 Freq: Status: Active Protocol: Document 01/11/24 08:16 NM (Rec: 01/11/24 09:01 NM [id number]) Functional Tests Five Times Sit to Stand Test Score 17.3 sec (19 chair) Comments repro pain at spine L side; initially >1 attempt to stand Timed Up and Go (TUG) Score 11.5 sec Comments no AD PT-OP-F Manual Assessment Start: 01/08/24 11:06 Freq: Status: Active Protocol: Document 01/11/24 08:16 NM (Rec: 01/11/24 09:01 NM [id number]) Manual Assessments Soft Tissue Assessment Soft Tissue Mobility Assessment Tightness of paraspinals erma on R side, B hamstrings, and hip flexors Joint Mobility Assessment Joint Mobility Assessment Hypomobility of lumbar spine with small scoliosis PT-OP-G Mobility & Gait Start: 01/08/24 11:06 Freq: Status: Active Protocol: Document 01/11/24 08:16 NM (Rec: 01/11/24 16:36 NM [id number]) OP Gait Assessment Gait Gait Assistance Required: Standby Assistance Distance (Feet) 150 Gait Deviations General Gait Pattern Antalgic,Flexed Trunk Factors Limiting Gait Function Factors Limiting Gait Function Decreased Activity Tolerance, Decreased Strength,Pain,Poor Balance Comments Gait Comments Demos increased trunk sway with ambulation PT-OP-H Neuro Start: 01/08/24 11:06 Freq: Status: Active Protocol: Document 01/11/24 08:16 NM (Rec: 01/11/24 09:01 NM [id number]) Sensation Evaluation Comments Summary Comments BLE intact to light touch sensation equally PT-OP-J Posture/Palpation/Skin Start: 01/08/24 11:06 Freq: Status: Active Protocol: Document 01/11/24 08:16 NM (Rec: 01/11/24 16:36 NM [id number]) Posture Evaluation Position Standing Head/C-Spine Posture Forward Head L-Spine Posture Increased Lordosis Shoulder Posture (L) Rounded,(R) Rounded Pelvis Posture Anteriorly Tilted Hip Posture (L) Externally Rotated,(R) Externally Rotated Palpation Assessment Location lumbar spine Palpation Details Increased restrictions of paraspinals No tenderness along midline to palpation until lower lumbar spine and B PSIS/SIJ PT-OP-K Range of Motion Start: 01/08/24 11:06 Freq: Status: Active Protocol: Document 01/11/24 08:16 NM (Rec: 01/11/24 09:01 NM [id number]) Lumbar Spine Range of Motion Lumbar Spine Active Percentage Flexion 50 Extension 25 Rotation Left 50 Rotation Right 50 Lateral Flexion Left 50 Lateral Flexion Right 50 Comments pain with L LF, ext PT-OP-L Special Tests Start: 01/08/24 11:06 Freq: Status: Active Protocol: Document 01/11/24 08:16 NM (Rec: 01/11/24 09:01 NM [id number]) Special Tests Lumbar Spine Special Tests Trimble/quadrant Test Results - PT-OP-M Strength Start: 01/08/24 11:06 Freq: Status: Active Protocol: Document 01/11/24 08:16 NM (Rec: 01/11/24 09:01 NM [id number]) Trunk Strength Trunk Manual Muscle Testing Flexion 3+ Fair+ Extension 3+ Fair+ Rotation Left 3+ Fair+ Rotation Right 3+ Fair+ Lateral Flexion Left 3+ Fair+ Lateral Flexion Right 3+ Fair+ Comments No pain Hip Strength Hip Manual Muscle Testing Right Flexion (L2) 4- Good- Extension (S1) 4- Good- Abduction 4- Good- Adduction 4- Good- External Rotation 4- Good- Internal Rotation 4- Good- Left Flexion (L2) 4- Good- Extension (S1) 4- Good- Abduction 4- Good- Adduction 4- Good- External Rotation 4- Good- Internal Rotation 4- Good- Knee Strength Knee Manual Muscle Testing Right Flexion (S2) 4- Good- Extension (L3) 4- Good- Left Flexion (S2) 4- Good- Extension (L3) 4- Good- Ankle/Foot Strength Ankle and Foot Manual Muscle Testing Right Dorsiflexion (L4) 4- Good- Plantarflexion (S1) 4- Good- Left Dorsiflexion (L4) 4- Good- Plantarflexion (S1) 4- Good- PT-OP-Q Treatments Start: 01/08/24 11:06 Freq: Status: Active Protocol: Document 01/27/24 07:30 NM (Rec: 01/27/24 08:16 NM [id number]) Therapeutic Exercises Supine Exercises lower trunk rotation Supine Exercise Name for am mobility Side bilateral Reps/Minutes 30 riki stretch Supine Exercise Name HEP- am mobility Side bilateral Reps/Minutes 60 bridge Supine Exercise Name HEP review- am mobility Side bilateral Equipment Used with ppt (cued flatten back on table before lift) Reps/Minutes 15 Comments pain free Sidelying Exercises open book Side bilateral Reps/Minutes 10 Comments pain free Sitting Exercises sit to stand Sitting Exercise Name HEP Side bilateral Resistance lvl 2 band at thighs Reps/Minutes 10 Comments cued eccentric control Standing Exercises hip extension Side bilateral Resistance level 1 band at ankles Equipment Used B hand support on bar for balance Reps/Minutes 10 ea Comments cued trunk control hip abduction Side bilateral Resistance level 1 band at ankles Equipment Used B hand support on bar for balance Reps/Minutes 10 ea Comments cued trunk control calf stretch Side bilateral Equipment Used MARIOLA- hands on bar for balance Reps/Minutes 60 Neuro Re-Education Treatment Balance Activities shuttle balance Surface unstable Equipment red Reps/Duration 4 min Comments CGA-min A AP and ML Tandem Surface stable Reps/Duration 60 ea foot Comments 1 finger support, prn on ballet bar as needed. close SBA SLS Surface stable Reps/Duration 2x30 ea Comments 1 finger support, prn on ballet bar as needed. close SBA Self-Care/Home Management Treatment Education Other Education Educated on importance of performing HEP for carryover at home to supplement PT and maximize progression. 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 Educated on trialing emphasizing morning mobility routine and choosing 1-2 other exercises to perform 1x/day if able PT-OP-T Assessment and Plan Start: 01/08/24 11:06 Freq: Status: Active Protocol: Document 01/27/24 07:30 NM (Rec: 01/27/24 08:16 NM [id number]) Physical Therapy Assessment Goals Three Impairment 5x STS score 17.3 w/ inc back pain indicating difficulty w/ transfers Short Term Goal (STG) Pt will be educated on body mechanics and ergonomics to improve ability to perform transfers during at least 10 reps of STS from standard chair 01/27/24: educated on STS mechanics, able to perform from low plinth STG Duration 4 weeks MET Corporate Human Resources Manager Goal (LTG) Pt will be able to perform 5x STS from standard height chair without increase in back or leg pain in at least 15 seconds or less (age-related norm) to indicate improved balance and BLE strength for transfers LTG Duration 10 weeks Two Impairment Rodriguez balance 42/56 indicating increased fall risk Corporate Human Resources Manager Goal (LTG) Pt will improve Rodriguez balance score to >45/56 (cut off score ) in order to demonstrate improvements in balance with static activities and decreased fall risk LTG Duration 10 weeks One Impairment not performing HEP Corporate Human Resources Manager Goal (LTG) Pt will report compliance with HEP at least 3x/wk in order to maximize progression with PT and transition to maintenance program LTG Duration 10 weeks Assessment Summary Assessment Pt reports 0.5/10 back pain at start of session and 1/10 at end of session. Session emphasis on establishing morning mobility routine to improve pt pain management. Initiated STS training. Pt demos improved control with ascent but requires cueing for eccentric control; improved with reps. Continued with glute strengthening and trunk strengthening to facilitate improved trunk control and postural stability during standing ADLs. Good feedback to balance training. LLE more challenging for maintaining steadiness than RLE. Pt would continue to benefit from skilled PT for progressive strengthening, mobility, and balance training in order to improve symptom management during ADLs. Physical Therapy Plan Frequency and Duration Frequency of Treatment 2x/Week Duration of treatment (weeks) 10 Plan of Care Start Date 01/11/24 Plan of Care End Date 03/25/24 Therapeutic Interventions Therapeutic Interventions Balance Training,Gait Training ,Home Exercise Program,Joint Mobilizations,Manual Therapy, Neuromuscular Re-education, Orthotic/Prosthetic Management ,Patient/Caregiver Education, Self-Care/Home Management, Sensory Integration,Soft Tissue Mobilization,Taping, Therapeutic Activities, Therapeutic Exercises Modalities Cold Pack/Ice Massage,Electric Stimulation,Hot Packs Next Visit Focus/Plan Next Note Type Progress Note Next Visit Plan Balance training and glute strengthening. Initiate strengthening of hip and back in sitting and standing: STS, leg press, pallof press to HEp , seated april, bug, carries, modified bird dog, hip 3 way. Core bracing in supine > sit > stand and body mechanics/ergononics training.
--- NOTE | 2024-02-29 09:28 | PT-OP ANOTE ---
PT called and left message for pt to follow up as pt has not been seen since 01/26 and has canceled all January appt. Asked if pt is wanting to discharge as plan of care still good until 03/25/24. .Asked for pt to call lockstitch front edge tape sewer to inform if he will want more visits or not, otherwise pt will be discharged from PT
--- NOTE | 2024-03-24 13:44 | PT.OPDS ---
Current Diagnoses Lumbago with sciatica, unspecified side (01/27/24) Other lack of coordination (01/27/24) Weakness (01/27/24) Visit Care Team Role Provider Type Anthony Aranda MD Family Provider Physician Primary Care Provider Specialty: Internal Medicine Address: [address] [place] [address], [address], [place], [address] Email: [email or web address] Jocelyne Vizcarra PA-C Attending Provider [employer] Referring Provider Specialty: Medical Wound Care Address: [address] [place] [address], [id number] Email: [email or web address] Visit Number Visit Number 07/14 Discharge Summary PT-OP-B Current Condition Start: 01/08/24 11:06 Freq: Status: Active Protocol: Document 01/11/24 08:16 NM (Rec: 01/11/24 09:01 NM [id number]) Current Condition History of Current Condition Current Complaints balance, weakness History of Current Condition Pt presents with low back pain . He has had low back pain since 10/10/23. He was working on a sink (underneath), states that he using back muscles while fixing the pipes. He reports that the next day, his back hurt and got worse up to 8/10 pain. He reports that the pain was so sharp that he would fall, which is abnormal for him. He dropped directly to the ground, unable to catch himself. He reports that has not happened 3 weeks ago. Now a moderate pain, states that has been that way for about a month. He reports that he can walk but still reports that every once in a while, on hills, he feels a grabs usually on the L side but occasionally on the R. He reports that he had back pain 40 years ago when picking a heavy piece of metal. He denies no catching or locking in back. He gets sharp a pain with walking on unlevel surfaces (hills). He denies changes to bowel or bladder currently but states that he was having difficulty having a bowel movement in last 2 weeks; no changes to diet, states that he drinks coffee and milk but not water; denies sensation changes in thighs. He reports that he has occasional occasional shooting pain down his RLE, stays above the knee posterior thigh . He denies numbness or tingling in his BLE. He does not use a AD currently, was using crutch for balance when his back was bothering him extensively. 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 Current Functional Impairments (Reported) Functional Limitations- Mobility/Gait 1 mi ambulation to walk dog ea day- reports occasional sharp pain reports balance is not quite as good since injury; reports that he was able to stand on 1 leg and put his pants on but has not been able to do since September pt hiking 5-6 mi before injury couple times a week, reports that he uses a cane recently ( used lofstrand crutch) Functional Limitations- Other sleeps on L side- not waking due to pain PT-OP-C Subjective Start: 01/08/24 11:06 Freq: Status: Active Protocol: Document 01/27/24 07:30 NM (Rec: 01/27/24 08:16 NM [id number]) OP-PT Subjective Patient Comments Patient Comments Pt reports the same with his back. Reports always worse in am, especially following sleeping. PT-OP-D Balance Start: 01/08/24 11:06 Freq: Status: Active Protocol: Document 01/11/24 08:16 NM (Rec: 01/11/24 09:01 NM [id number]) Balance Tests Rodriguez Balance Test Rodriguez Balance Test Score 42/56 PT-OP-E Functional Tests Start: 01/08/24 11:06 Freq: Status: Active Protocol: Document 01/11/24 08:16 NM (Rec: 01/11/24 09:01 NM [id number]) Functional Tests Five Times Sit to Stand Test Score 17.3 sec (19 chair) Comments repro pain at spine L side; initially >1 attempt to stand Timed Up and Go (TUG) Score 11.5 sec Comments no AD PT-OP-F Manual Assessment Start: 01/08/24 11:06 Freq: Status: Active Protocol: Document 01/11/24 08:16 NM (Rec: 01/11/24 09:01 NM [id number]) Manual Assessments Soft Tissue Assessment Soft Tissue Mobility Assessment Tightness of paraspinals erma on R side, B hamstrings, and hip flexors Joint Mobility Assessment Joint Mobility Assessment Hypomobility of lumbar spine with small scoliosis PT-OP-G Mobility & Gait Start: 01/08/24 11:06 Freq: Status: Active Protocol: Document 01/11/24 08:16 NM (Rec: 01/11/24 16:36 NM [id number]) OP Gait Assessment Gait Gait Assistance Required: Standby Assistance Distance (Feet) 150 Gait Deviations General Gait Pattern Antalgic,Flexed Trunk Factors Limiting Gait Function Factors Limiting Gait Function Decreased Activity Tolerance, Decreased Strength,Pain,Poor Balance Comments Gait Comments Demos increased trunk sway with ambulation PT-OP-H Neuro Start: 01/08/24 11:06 Freq: Status: Active Protocol: Document 01/11/24 08:16 NM (Rec: 01/11/24 09:01 NM [id number]) Sensation Evaluation Comments Summary Comments BLE intact to light touch sensation equally PT-OP-J Posture/Palpation/Skin Start: 01/08/24 11:06 Freq: Status: Active Protocol: Document 01/11/24 08:16 NM (Rec: 01/11/24 16:36 NM [id number]) Posture Evaluation Position Standing Head/C-Spine Posture Forward Head L-Spine Posture Increased Lordosis Shoulder Posture (L) Rounded,(R) Rounded Pelvis Posture Anteriorly Tilted Hip Posture (L) Externally Rotated,(R) Externally Rotated Palpation Assessment Location lumbar spine Palpation Details Increased restrictions of paraspinals No tenderness along midline to palpation until lower lumbar spine and B PSIS/SIJ PT-OP-K Range of Motion Start: 01/08/24 11:06 Freq: Status: Active Protocol: Document 01/11/24 08:16 NM (Rec: 01/11/24 09:01 NM [id number]) Lumbar Spine Range of Motion Lumbar Spine Active Percentage Flexion 50 Extension 25 Rotation Left 50 Rotation Right 50 Lateral Flexion Left 50 Lateral Flexion Right 50 Comments pain with L LF, ext PT-OP-L Special Tests Start: 01/08/24 11:06 Freq: Status: Active Protocol: Document 01/11/24 08:16 NM (Rec: 01/11/24 09:01 NM [id number]) Special Tests Lumbar Spine Special Tests Trimble/quadrant Test Results - PT-OP-M Strength Start: 01/08/24 11:06 Freq: Status: Active Protocol: Document 01/11/24 08:16 NM (Rec: 01/11/24 09:01 NM [id number]) Trunk Strength Trunk Manual Muscle Testing Flexion 3+ Fair+ Extension 3+ Fair+ Rotation Left 3+ Fair+ Rotation Right 3+ Fair+ Lateral Flexion Left 3+ Fair+ Lateral Flexion Right 3+ Fair+ Comments No pain Hip Strength Hip Manual Muscle Testing Right Flexion (L2) 4- Good- Extension (S1) 4- Good- Abduction 4- Good- Adduction 4- Good- External Rotation 4- Good- Internal Rotation 4- Good- Left Flexion (L2) 4- Good- Extension (S1) 4- Good- Abduction 4- Good- Adduction 4- Good- External Rotation 4- Good- Internal Rotation 4- Good- Knee Strength Knee Manual Muscle Testing Right Flexion (S2) 4- Good- Extension (L3) 4- Good- Left Flexion (S2) 4- Good- Extension (L3) 4- Good- Ankle/Foot Strength Ankle and Foot Manual Muscle Testing Right Dorsiflexion (L4) 4- Good- Plantarflexion (S1) 4- Good- Left Dorsiflexion (L4) 4- Good- Plantarflexion (S1) 4- Good- PT-OP-T Assessment and Plan Start: 01/08/24 11:06 Freq: Status: Active Protocol: Document 03/24/24 13:41 NM (Rec: 03/24/24 13:44 NM [id number]) Physical Therapy Assessment Goals Three Impairment 5x STS score 17.3 w/ inc back pain indicating difficulty w/ transfers Short Term Goal (STG) Pt will be educated on body mechanics and ergonomics to improve ability to perform transfers during at least 10 reps of STS from standard chair 01/27/24: educated on STS mechanics, able to perform from low plinth STG Duration 4 weeks MET [employer] And Safety Helper Goal (LTG) Pt will be able to perform 5x STS from standard height chair without increase in back or leg pain in at least 15 seconds or less (age-related norm) to indicate improved balance and BLE strength for transfers LTG Duration 10 weeks Two Impairment Rodriguez balance 42/56 indicating increased fall risk Detention Goal (LTG) Pt will improve Rodriguez balance score to >45/56 (cut off score ) in order to demonstrate improvements in balance with static activities and decreased fall risk LTG Duration 10 weeks One Impairment not performing HEP Fire And Safety Helper Goal (LTG) Pt will report compliance with HEP at least 3x/wk in order to maximize progression with PT and transition to maintenance program LTG Duration 10 weeks Assessment Summary Assessment Pt attended x4 visits following evaluation for back pain in January 2024. He did not demo progression toward PT goals. 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 Physical Therapy Plan Frequency and Duration Frequency of Treatment 2x/Week Duration of treatment (weeks) 10 Plan of Care Start Date 01/11/24 Plan of Care End Date 03/25/24 Therapeutic Interventions Therapeutic Interventions Balance Training,Gait Training ,Home Exercise Program,Joint Mobilizations,Manual Therapy, Neuromuscular Re-education, Orthotic/Prosthetic Management ,Patient/Caregiver Education, Self-Care/Home Management, Sensory Integration,Soft Tissue Mobilization,Taping, Therapeutic Activities, Therapeutic Exercises Modalities Cold Pack/Ice Massage,Electric Stimulation,Hot Packs Discharge Physical Therapy Discharge Reasons No Longer Attending PT Discharge Comments Pt has not been seen in clinic since 01/27/24. He canceled all remaining appt. PT called to ask if pt wants to continue PT vs discharge from PT, and pt requested discharge from PT on 03/09/24. Pt will need new PT referral to return to PT. Next Visit Focus/Plan Next Note Type Discharge Summary Next Visit Plan discharge from PT
== END 2024-03-30 14:29 | disposition home or self-care (01) ==
LOC: PHYS 07:30
PROVIDERS: Family Provider Internal Medicine; PCP Internal Medicine; Referring Provider Physician Assistant; Visit Provider Physician Assistant
DX: M54.40 Lumbago with sciatica, unspecified side (principal); R53.1 Weakness; R27.8 Other lack of coordination
CPT/HCPCS: 97110; 97112; 97140; 97161; 97530